=== PATIENT | male | born 1955 | race African-American/Black ===

== ENCOUNTER 2017-03-16 14:57 | Inpatient (IN) ==
[2017-03-16] MEDS: SODIUM CHLORIDE 0.9% 1,000 ML IV SCH (19:06)
[2017-03-16] MEDS: DILTIAZEM INJ 100 MG in SODIUM CHLORIDE 0.9% 100 ML IV SCH (19:07)
[2017-03-16] MEDS ORDERED: ESMOLOL 100 MG/10 ML VIAL IV ONE (19:57)
[2017-03-16] MEDS: CHLORHEXIDINE 0.12% ORAL RINSE 60 ML BOTTLE SWISH/SPIT SCH (21:08)
[2017-03-16] MEDS ORDERED: METOPROLOL TARTRATE 5 MG/5 ML VIAL IV ONE (21:57)
[2017-03-16] MEDS ORDERED: FUROSEMIDE 100 MG/10 ML VIAL IV ONE (23:20)
[2017-03-17] MEDS: DILTIAZEM INJ 100 MG in SODIUM CHLORIDE 0.9% 100 ML IV SCH ×2 (01:58→19:08)
[2017-03-17] MEDS: METOPROLOL TARTRATE 5 MG/5 ML VIAL IV SCH ×5 (04:33→23:31)
[2017-03-17] MEDS ORDERED: FUROSEMIDE 40 MG/4 ML VIAL IV ONE ×2 (07:16→17:00)
[2017-03-17 07:35] LABS: Calcium 8.5 MG/DL (8.5-10.1); Magnesium 2.2 MG/DL (1.8-2.4); Potassium 4.6 MMOL/L (3.5-5.1)
[2017-03-17 07:41] LABS: Basophils % 0.1 % (0.0-0.8); Eosinophils % 0.4 % (0.00-10.9); Hematocrit 37.6 VOL% (42.0-52.0); Immature Granulocytes % 0.5 %; Immature Granulocytes Absolute 0.05 #; Lymphocytes # 1.5 10*3/uL (1.4-4.0); Lymphocytes % 15.5 % (21.2-54.2); Mean Corpuscular HGB Conc 31.9 GM/DL (32-36); Mean Corpuscular Hemoglobin 30 PG (27-34); Mean Corpuscular Volume 94.5 FL (87-102); Mean Platelet Volume 11.5 FL (9.6-12.0); Monocytes # 1.2 10*3/uL (0.11-0.8); Monocytes % 12.7 % (1.7-12.7); Neutrophils # 6.9 10*3/uL (1.4-7.4); Neutrophils % 70.8 % (38.7-73.9); Platelet Count 181 T/CUMM (130-400); Red Blood Count 3.98 MC/CUMM (3.8-5.5); Red Cell Distribution Width 12.2 % (9.3-17.3); White Blood Count 9.7 T/CUMM (4-12)
--- NOTE | 2017-03-17 08:01 | XRay Report ---
XR chest 2V Indication: SOB Comparison: None Technique: Frontal and lateral views of the chest. Findings: Moderate cardiomegaly. There is a nonspecific reticular pattern throughout the bilateral lungs suspicious for interstitial pulmonary edema, interstitial pneumonia, or other interstitial lung disease. Interstitial pulmonary edema/CHF favored. Small bilateral pleural effusions. The lungs are somewhat hyperinflated which can be seen with COPD. Multilevel bridging osteophytes of the thoracic spine suggestive of diffuse neoplastic skeletal hyperostosis. IMPRESSION: As above. PROCEDURE INTERPRETED AT [facility] DEPARTMENT OF RADIOLOGY Final Report Signed by: Dr Rajesh Frey
[2017-03-17] MEDS: CHLORHEXIDINE 0.12% ORAL RINSE 60 ML BOTTLE SWISH/SPIT SCH ×2 (09:38→21:45)
[2017-03-17] MEDS: CHLORHEXIDINE 4% SOLN 118 ML BOTTLE TOP SCH ×2 (09:38→21:46)
--- NOTE | 2017-03-17 11:07 | Cardiothoracic History & Phys ---
Assessment and Plan - Time spent with patient Time spent with patient: Greater than 30 minutes (1) Aortic valve stenosis Status: Acute Current Visit: Yes (2) Aortic valve stenosis Status: Acute Assessment and plan: Risk Model and Variables - STS Adult Cardiac Surgery Database Version 2.81 RISK SCORES About the STS Risk Calculator Procedure: AV Replacement Risk of Mortality: 5.645% Morbidity or Mortality: 45.8% Long Length of Stay: 28.343% Short Length of Stay: 8.238% Permanent Stroke: 1.093% Prolonged Ventilation: 36.054% DSW Infection: 1.914% Renal Failure: 14.124% Reoperation: 15.661% 61-year-old male with severe aortic stenosis and symptoms of congestive heart failure at least partially related to his aortic stenosis. He was noted also to have cardiomyopathy with EF around 25-30% as well as pulmonary hypertension. I had a lengthy discussion with the patient and the family and explained to them that he will need an aortic valve replacement. I explained risks benefits and alternatives and I explained that he is an intermediate risk for surgery. The patient and the family elected to proceed with open surgical replacement of the aortic valve with a mechanical prosthesis. I have been inducing diuresis to tune him up for surgery he was given 2560 mg IV of Lasix. Upon transfer he was already still in sinus tachycardia that was controlled with a beta-elidia. We will proceed with surgery on March 18, 2017. Current Visit: Yes History of Present Illness Chief complaint: congestive heart failure History of present illness: Mr. Guerrero is a 61 year old male who has been having increasing shortness of breath recently mainly upon activity. He denies any chest pain. He had an echo recently which showed severe aortic stenosis. He had a cath at [facility] yesterday showing coronaries to be free of significant disease and confirmed the presence of severe aortic stenosis. I transferred the patient here to [place] from [facility] in preparation for aortic valve replacement surgery. Home Medications Medication Instructions Recorded Confirmed Type Fluticasone/Salmeterol 250-50 1 puff INH BID 03/16/17 03/16/17 History [Advair 250-50] RX: Carvedilol 3.125 mg PO BID 03/16/17 03/16/17 History RX: Fluticasone 50 Mcg Nasal [place] 1 spray ONE NARE BID 03/16/17 03/16/17 History [Flonase Nasal [place]] RX: Furosemide 20 mg PO DAILY 03/16/17 03/16/17 History RX: Lisinopril 10 mg PO DAILY 03/16/17 03/16/17 History Allergies Allergy/AdvReac Type Severity Reaction Status Date / Time No Known Allergies Allergy Verified 03/16/17 18:27 12 point system: reviewed and no additional remarkable complaints except as stated (hpi) Medical,Surgical,& Family Hx - Medical History Cardio: History of: Cardiac Dysrhythmia, Hypertension, Cardiovascular Problems Respiratory: History of: Asthma, Bronchitis, COPD - Social History Smoking Status: Never smoker Frequency of Alcohol Use: None Type of Drug Use: None Cardiology Physical Exam - Constitutional Vitals: Vital Signs Temp Pulse Resp BP Pulse Ox 97.4 F L 98 H 18 128/84 97 03/17/17 08:00 03/17/17 08:00 03/17/17 08:00 03/17/17 08:00 03/17/17 08:00 Intake and Output 03/16/17 03/17/17 03/17/17 22:59 06:59 14:59 Intake Total 360 / 360 342.5 / 342.5 17.5 / 17.5 Output Total 800 / 800 Balance 360 / 360 -457.5 / -457.5 17.5 / 17.5 Intake: IV 0 / 0 102.5 / 102.5 17.5 / 17.5 Cardizem Inj 100 mg In Ns 0 / 0 102.5 / 102.5 17.5 / 17.5 100 ml @ 5 MG/HR 5 mls/ hr IV TITRATE PERLA Rx#: [id number] Oral 360 / 360 240 / 240 Output: Urine 800 / 800 Other: Voiding Method Urinal Urinal # Voids 2 Weight 154.221 kg General appearance: mild distress, morbidly obese - Head Head exam: Present: normal inspection - Eye Eye exam: Present: EOMI Pupils: Present: NAVYA - ENT ENT exam: Present: normal exam - Neck Neck exam: Present: normal inspection - Respiratory Respiratory exam: Present: decreased breath sounds, wheezes - Cardiovascular Cardiovascular exam: Present: regular rate and rhythm Result/EKG - Labs CBC & BMP: 03/17/17 07:38 03/17/17 03:45 Labs: Laboratory Results - last 24 hr 03/16/17 03/17/1703/17/17 18:48 03:45 03:45 WBC RBC Hgb Hct MCV MCH MCHC RDW Plt Count MPV Neut % (Auto) Lymph % (Auto) [place] % (Auto) Eos % (Auto) Baso % (Auto) Neut # (Auto) Lymph # (Auto) [place] # (Auto) Eos # (Auto) Baso # (Auto) Immature Gran % Nucleated RBC % Immature Gran # Nucleated RBCs # Immature Plt Fraction Sodium 136 Potassium 4.6 Chloride 95 L Carbon Dioxide 35 H Anion Gap 10.6 BUN 15 Creatinine 1.20 GFR Calculation 116 BUN/Creatinine Ratio 12.00 Glucose 117 H Calculated Osmolality 273.0 Calcium 8.5 Magnesium 2.2 Blood Type O POSITIVE O POSITIVE Antibody Screen Negative Negative Crossmatch See Detail 03/17/17 07:38 WBC 9.7 RBC 3.98 Hgb 12.0 L Hct 37.6 L MCV 94.5 MCH 30 MCHC 31.9 L RDW 12.2 Plt Count 181 MPV 11.5 Neut % (Auto) 70.8 Lymph % (Auto) 15.5 L [place] % (Auto) 12.7 Eos % (Auto) 0.4 Baso % (Auto) 0.1 Neut # (Auto) 6.9 Lymph # (Auto) 1.5 [place] # (Auto) 1.2 H Eos # (Auto) 0.0 Baso # (Auto) 0.0 Immature Gran % 0.5 Nucleated RBC % 0.0 Immature Gran # 0.05 Nucleated RBCs # 0.00 Immature Plt Fraction 0.0 Sodium Potassium Chloride Carbon Dioxide Anion Gap BUN Creatinine GFR Calculation BUN/Creatinine Ratio Glucose Calculated Osmolality Calcium Magnesium Blood Type Antibody Screen Crossmatch Quality Measures - VTE Contraindication to Pharmacological VTE Prophylaxis: Active Bleeding
[2017-03-17] MEDS: FLUTICASONE/SALMETEROL 250-50 DISKUS 14 DOSE INH SCH ×2 (13:37→21:45)
--- NOTE | 2017-03-17 14:35 | Cardiology Consult Note ---
<Padma Hardy - Last Filed: 03/17/17 15:13> Assessment and Plan - Time spent with patient Time spent with patient: Greater than 30 minutes (1) Aortic valve stenosis Status: Acute Assessment and plan: See plan of care listed below. Current Visit: Yes (2) Congestive heart failure Status: Chronic Assessment and plan: See plan of care listed below. Current Visit: Yes Qualifiers: Congestive heart failure chronicity: unspecified congestive heart failure chronicity (3) Nonischemic cardiomyopathy Status: Acute Assessment and plan: See plan of care listed below. Current Visit: Yes (4) Pulmonary hypertension Status: Acute Assessment and plan: See plan of care listed below. Current Visit: Yes (5) History of asthma Status: Chronic Assessment and plan: See plan of care listed below Current Visit: Yes History of Present Illness - Data of Consult Patient: new to practice Consult date: 03/17/17 Requesting Physician: Shabana Vazquez - Consult Narrative Reason for consult: chf, severe History of present illness: Medical Resident: Dr. Clark at [place] Mr. Guerrero is a 61 year old male without known history of coronary artery disease, routinely followed by [place] cardiology. Patient has cardiac risk factors significant for hypertension, sedentary lifestyle, family history of heart disease (mother) and obesity. Past medical history of asthma patient reports that he does chew tobacco daily. Denies smoking. Patient was transferred to [facility] from [facility] yesterday, March 16, 2017. He underwent heart catheterization 03/16/17 at [facility] that revealed severe aortic stenosis. Coronaries were free of significant obstructive disease. He was transferred to our facility for aortic valve replacement surgery Per Dr. Vazquez. Cardiology has been consulted to follow as patient does have symptoms of congestive heart failure most likely secondary to his aortic stenosis and systolic dysfunction. Has a nonischemic cardiomyopathy with EF around 25-30%. Patient has been diuresed per attending in preparation for surgery tomorrow. Patient was seen and examined with Dr. Damon. He denies experiencing any chest pain, heaviness and tightness. He reports chronic dyspnea on exertion that has significantly worsened over the last 1 year. He also confirms chronic lower extremity edema. He denies syncope but confirms intermittent dizziness. He reports orthopnea and tells us that he has to sleep on multiple pillows nightly. He does report melena about 3 -4 years ago which resolved on its own. Never had colonoscopy. He will need to have this done as an outpatient. He denies fever, chills, cough, nausea, vomiting, abdominal pain and heart racing/palpitations. Echocardiogram has been ordered in order to evaluate patient's aortic stenosis as well as LV function. JUSTIN will be performed intraoperatively tomorrow. Risks and benefits of this procedure has been reviewed with the patient. He verbalizes understanding and wishes to proceed. He will be kept n.p.o. after midnight. ASSESSMENT/PLAN 1. SEVERE AORTIC STENOSIS - Patient is scheduled for AVR tomorrow per Dr. Fernando Minor. Will obtain echocardiogram today. JUSTIN will be performed intraoperatively tomorrow. Risk and benefits of procedure have been reviewed with patient. He is agreeable to proceed. N.p.o. after midnight. 2. CONGESTIVE HEART FAILURE - Chronicity of this is unknown. Secondary to patient's severe aortic stenosis as well as systolic dysfunction. Most recent ejection fraction 25-30%. Patient has been diuresed per attending in preparation for surgery tomorrow. Lung exam is clear. BNP is pending. Continue daily weights and strict I's and O's. 3. NONISCHEMIC CARDIOMYOPATHY - Most recent ejection fraction noted to be 25- 30%. Echocardiogram has been ordered. She underwent heart catheterization at [facility] earlier this week which did not reveal any obstructive coronary artery disease. Will treat this medically. Will add DANAE inhibitor and beta blockade when blood pressure will allow post surgery. Patient will need repeat echocardiogram in 90 days in order to reassess his systolic function. He may be a candidate for ICD at that point. 4. PULMONARY HYPERTENSION - Continue current plan of care. 5. HISTORY OF ASTHMA - Clinically stable at present. Continue current plan of care. CC: Shabana Vazquez - Home Medications and Allergies Home Medications: Home Medications Medication Instructions Recorded Confirmed Type Carvedilol 3.125 mg PO BID 03/16/17 03/16/17 History Fluticasone 50 Mcg Nasal [place] 1 spray ONE NARE BID 03/16/17 03/16/17 History [Flonase Nasal [place]] Fluticasone/Salmeterol 250-50 1 puff INH BID 03/16/17 03/16/17 History [Advair 250-50] Furosemide 20 mg PO DAILY 03/16/17 03/16/17 History Lisinopril 10 mg PO DAILY 03/16/17 03/16/17 History Allergies/Adverse Reactions: Allergies Allergy/AdvReac Type Severity Reaction Status Date / Time No Known Allergies Allergy Verified 03/16/17 18:27 - Constitutional Constitutional: Present: as per HPI, fatigue, weight gain. Absent: chills, fever(s), frequent falls, weight loss - Cardiovascular Cardiovascular: Present: as per HPI, diaphoresis, dyspnea, dyspnea on exertion, edema, orthopnea, PND. Absent: chest pain at rest, chest pain with activity, claudication, radiating jaw, neck or arm pain, lightheadedness, palpitations - Respiratory Respiratory: Present: as per HPI, dyspnea, dyspnea on exertion. Absent: cough, hemoptysis, wheezing, snoring, pain on inspiration, change in phlegm color - Gastrointestinal Gastrointestinal: Present: as per HPI, melena (3 years ago). Absent: abdominal pain, nausea, vomiting - Neurological Neurological: Present: as per HPI. Absent: abnormal gait, abnormal speech, behavioral changes, dizziness, syncope Medical,Surgical,& Family Hx - Medical History Cardio: History of: Cardiac Dysrhythmia, CHF, Hypertension, Valvular Heart Disease (Aortic stenosis), Cardiovascular Problems Respiratory: History of: Asthma, Bronchitis - Surgical History Cardiac Surgeries: Sugical HX of: Cardiac Catheterization Abdominal Surgeries: Patient denies: Colonoscopy - Family History Family History: Reports;: Family Heart Disease - Social History Smoking Status: Never smoker Frequency of Alcohol Use: None Type of Drug Use: None Marital Status: Lives With:: Spouse Functional capacity: independent ambulation Physical Examination Vital Signs Temp Pulse Resp BP Pulse Ox 97.8 F 119 H 20 120/68 96 03/16/17 18:29 03/16/17 18:29 03/16/17 18:29 03/16/17 18:29 03/16/17 18:29 Exam: General: Appears well with no apparent distress. Pleasant and cooperative. Appears comfortable. Obese. HEENT: PERRL, normocephalic, atraumatic. Mucous membranes moist. No jaundice noted. Conjunctiva moist and clear, sclerae anicteric Neck: No JVD/HJR, no thyromegaly or lymphadenopathy noted. No carotid bruit appreciated Cardiac: Regular rate and rhythm. Heart tones are distant. Grade 2 out of 6 murmur Lungs: Clear to auscultation without accessory muscle use to assist the respiratory pattern. Abdomen: Soft, bowel sounds normoactive. Nontender and nondistended. No abdominal bruit or thrill noted. No masses noted. Extremities: No clubbing, cyanosis noted. 3+ bilateral lower extremity edema. Upper extremity pulses 2+. Lower extremity pulses 2+. Capillary refill less than 3 seconds. Skin: No unusual lesions or rashes. No skin breakdown appreciated. Neuro: Awake, alert and oriented 3. Moves all extremities well without hemiparesis or paralysis. No essential tremor is appreciated. Result/EKG - Labs CBC & BMP: 03/17/17 07:38 03/17/17 03:45 Lab Results: I have reviewed the past 24 hour labs Labs: Laboratory Results - last 24 hr 03/16/17 03/17/17 03/17/17 18:48 03:45 03:45 WBC RBC Hgb Hct MCV MCH MCHC RDW Plt Count MPV Neut % (Auto) Lymph % (Auto) [place] % (Auto) Eos % (Auto) Baso % (Auto) Neut # (Auto) Lymph # (Auto) [place] # (Auto) Eos # (Auto) Baso # (Auto) Immature Gran % Nucleated RBC % Immature Gran # Nucleated RBCs # Immature Plt Fraction Sodium 136 Potassium 4.6 Chloride 95 L Carbon Dioxide 35 H Anion Gap 10.6 BUN 15 Creatinine 1.20 GFR Calculation 116 BUN/Creatinine Ratio 12.00 Glucose 117 H Calculated Osmolality 273.0 Calcium 8.5 Magnesium 2.2 Blood Type O POSITIVE O POSITIVE Antibody Screen Negative Negative Crossmatch See Detail 03/17/17 07:38 WBC 9.7 RBC 3.98 Hgb 12.0 L Hct 37.6 L MCV 94.5 MCH 30 MCHC 31.9 L RDW 12.2 Plt Count 181 MPV 11.5 Neut % (Auto) 70.8 Lymph % (Auto) 15.5 L [place] % (Auto) 12.7 Eos % (Auto) 0.4 Baso % (Auto) 0.1 Neut # (Auto) 6.9 Lymph # (Auto) 1.5 [place] # (Auto) 1.2 H Eos # (Auto) 0.0 Baso # (Auto) 0.0 Immature Gran % 0.5 Nucleated RBC % 0.0 Immature Gran # 0.05 Nucleated RBCs # 0.00 Immature Plt Fraction 0.0 Sodium Potassium Chloride Carbon Dioxide Anion Gap BUN Creatinine GFR Calculation BUN/Creatinine Ratio Glucose Calculated Osmolality Calcium Magnesium Blood Type Antibody Screen Crossmatch Quality Measures - VTE Contraindication to Pharmacological VTE Prophylaxis: Active Bleeding <NelsonStephanie - Last Filed: 03/17/17 17:10> History of Present Illness - Consult Narrative History of present illness: I have personally interviewed and examined the patient, reviewed the chart and discussed medical decision-making with practitioner Antony. I have read this note and agree with the documentation herein. CC: Shabana Vazquez Physical Examination Vital Signs Temp Pulse Resp BP Pulse Ox 97.8 F 119 H 20 120/68 96 03/16/17 18:29 03/16/17 18:29 03/16/17 18:29 03/16/17 18:29 03/16/17 18:29 Result/EKG - Labs CBC & BMP: 03/17/17 07:38 03/17/17 03:45 Labs: Laboratory Results - last 24 hr 03/16/17 03/17/17 03/17/17 18:48 03:45 03:45 WBC RBC Hgb Hct MCV MCH MCHC RDW Plt Count MPV Neut % (Auto) Lymph % (Auto) [place] % (Auto) Eos % (Auto) Baso % (Auto) Neut # (Auto) Lymph # (Auto) [place] # (Auto) Eos # (Auto) Baso # (Auto) Immature Gran % Nucleated RBC % Immature Gran # Nucleated RBCs # Immature Plt Fraction Sodium 136 Potassium 4.6 Chloride 95 L Carbon Dioxide 35 H Anion Gap 10.6 BUN 15 Creatinine 1.20 GFR Calculation 116 BUN/Creatinine Ratio 12.00 Glucose 117 H Calculated Osmolality 273.0 Calcium 8.5 Magnesium 2.2 B-Natriuretic Peptide Blood Type O POSITIVE O POSITIVE Antibody Screen Negative Negative Crossmatch See Detail 03/17/17 03/17/17 07:38 Unknown WBC 9.7 RBC 3.98 Hgb 12.0 L Hct 37.6 L MCV 94.5 MCH 30 MCHC 31.9 L RDW 12.2 Plt Count 181 MPV 11.5 Neut % (Auto) 70.8 Lymph % (Auto) 15.5 L [place] % (Auto) 12.7 Eos % (Auto) 0.4 Baso % (Auto) 0.1 Neut # (Auto) 6.9 Lymph # (Auto) 1.5 [place] # (Auto) 1.2 H Eos # (Auto) 0.0 Baso # (Auto) 0.0 Immature Gran % 0.5 Nucleated RBC % 0.0 Immature Gran # 0.05 Nucleated RBCs # 0.00 Immature Plt Fraction 0.0 Sodium Potassium Chloride Carbon Dioxide Anion Gap BUN Creatinine GFR Calculation BUN/Creatinine Ratio Glucose Calculated Osmolality Calcium Magnesium B-Natriuretic Peptide 406 H Blood Type Antibody Screen Crossmatch
[2017-03-17] MEDS: SODIUM BICARB INJ 50 MEQ in SODIUM CHLORIDE 0.45% 1,000 ML IV SCH (16:00)
--- NOTE | 2017-03-17 18:04 | ECHO Report ---
Kenan Guerrero Exam Date: 03/17/2017 15:17 Referring Physician: Technologist: Sienna Nino Age: 61 Ht (in): 72 Wt (lb): 340 Gender: M Exam Location: [facility] Echo Indications: Hx. Asthma, Pulmonary HTN, AV stenosis, CHF, cardiomyopathy BP: 119 / 76 HR: 97 Rhythm: Sinus Technical Quality: Technically difficult study IMPRESSIONS Severely reduced LV systolic function with global hypokinesis, ejection fraction estimated at 20-25%. Grade 1/4 diastolic dysfunction. Mild to moderate concentric left ventricular hypertrophy. Mild biatrial enlargement. Trace mitral and tricuspid regurgitation. Severe aortic stenosis, favor severe. MEASUREMENTS (Male / Female) Normal Values 2D ECHO LV Diastolic Diameter PLAX 5.1 cm 4.2 - 5.9 / 3.9 - 5.3 cm LV Systolic Diameter PLAX 4.4 cm LV Fractional Shortening PLAX 13.4 % IVS Diastolic Thickness 1.5 cm 0.6 - 1.0 / 0.6 - 0.9 cm LVPW Diastolic Thickness 1.4 cm 0.6 - 1.0 / 0.6 - 0.9 cm Aortic Root Diameter 3.8 cm LA Systolic Diameter LX 4.4 cm 3.0 - 4.0 / 2.7 - 3.8 cm DOPPLER TR Peak Velocity 266.0 cm/s TR Peak Gradient 28.3 mmHg FINDINGS Left Ventricle Mildly increased left ventricular cavity size. Mild - moderate concentric left ventricular hypertrophy with diastolic dysfunction. Left ventricular ejection fraction is estimated at 20-25%. Right Ventricle Normal right ventricular size. Right Atrium Mildly enlarged. Left Atrium The left atrium is mildly enlarged. Mitral Valve Morphologically normal mitral valve. Trace mitral valve regurgitation. Aortic Valve Severe calcification with decreased leaflet excursion, Severe aortic valve stenosis. Peak gradient 58 mmHg, mean 34 mmHg. LVOT VTI 16.8 cm, AV VTI 75.7 cm, with a ratio of 0.22 which is consistent with severe aortic stenosis. By continuity equation aortic valve area is 1.1 cm, however in the setting of low systolic function is can overestimate the valve area. Aortic valve mean gradient is 34 mmHg. Mild regurgitation. Tricuspid Valve Morphologically normal tricuspid valve. Trace tricuspid valve regurgitation. Tricuspid regurgitation velocities suggest a PAP of 28.3 mmHg + RAP. Pulmonic Valve Pulmonic valve not well visualized. Pericardium No pericardial effusion. Aorta Normal size aortic root and proximal ascending aorta. Stephanie Damon MD (Electronically Signed) Final Date: 17 March 2017 18:03
[2017-03-17] MEDS: SODIUM CHLORIDE 0.9% 1,000 ML IV SCH (18:26)
--- NOTE | 2017-03-17 20:43 | EKG Report ---
Stationary ECG Study [facility] Test Date: 03/17/2017 8:40:27 PM Pat Name: TEODORA RODRIGUEZ Department: Room: 289 Gender: M Prevention Rn: : 1955 Requested by: Toñito Rahman Order Number: [id number] Reading MD: ADRIAN BONILLA Intervals [place] Rate: 110 P: 62 [place]: 185 QRS: -51 QRSD: 110 T: 88 QT: 347 QTc: 412 Interpretive Statements SINUS TACHYCARDIA LEFT ANTERIOR FASCICULAR BLOCK MODERATE VOLTAGE CRITERIA FOR LVH, MAY BE NORMAL VARIANT NONSPECIFIC T WAVE ABNORMALITY Electronically Signed On 03-21-17 18:28:17 CDT by ADRIAN BONILLA [email or web address]
[2017-03-17] MEDS: ALBUTEROL/IPRATROPIUM 3 ML NEB RESP TX SCH (21:20)
[2017-03-18] MEDS: ALBUTEROL/IPRATROPIUM 3 ML NEB RESP TX SCH ×6 (00:27→23:50)
[2017-03-18] MEDS: SODIUM BICARB INJ 50 MEQ in SODIUM CHLORIDE 0.45% 1,000 ML IV SCH (02:21)
[2017-03-18] MEDS ORDERED: VANCOMYCIN 1,000 MG VIAL ONE (04:44)
[2017-03-18] MEDS ORDERED: TISSUE ADHESIVE 1 EACH APPLICATOR TOP ONE (04:44)
[2017-03-18] MEDS: CHLORHEXIDINE 4% SOLN 118 ML BOTTLE TOP SCH (04:47)
[2017-03-18 05:24] LABS: Basophils % 0.1 % (0.0-0.8); Eosinophils # 0.1 10*3/uL (0.0-0.87); Eosinophils % 0.9 % (0.00-10.9); Hematocrit 35.4 VOL% (42.0-52.0); Hemoglobin 11.2 GM/DL (14.0-18.0); Immature Granulocytes % 0.5 %; Immature Granulocytes Absolute 0.04 #; Lymphocytes # 1.4 10*3/uL (1.4-4.0); Lymphocytes % 17.8 % (21.2-54.2); Mean Corpuscular HGB Conc 31.6 GM/DL (32-36); Mean Corpuscular Hemoglobin 30 PG (27-34); Mean Corpuscular Volume 94.7 FL (87-102); Mean Platelet Volume 12.1 FL (9.6-12.0); Monocytes % 12.6 % (1.7-12.7); Neutrophils # 5.5 10*3/uL (1.4-7.4); Neutrophils % 68.1 % (38.7-73.9); Platelet Count 177 T/CUMM (130-400); Red Blood Count 3.74 MC/CUMM (3.8-5.5); Red Cell Distribution Width 12.1 % (9.3-17.3); White Blood Count 8.1 T/CUMM (4-12)
[2017-03-18] MEDS ORDERED: CEFUROXIME INJ 1,500 MG in SODIUM CHLORIDE 0.9% 100 ML IV ONE (05:30)
[2017-03-18] MEDS: METOPROLOL TARTRATE 5 MG/5 ML VIAL IV SCH ×2 (05:35→12:00)
[2017-03-18 05:44] LABS: Calcium 8.8 MG/DL (8.5-10.1); Magnesium 2.3 MG/DL (1.8-2.4); Potassium 4.4 MMOL/L (3.5-5.1)
[2017-03-18] MEDS ORDERED: MINERAL OIL/PETROLATUM OPH OINT 3.5 GM TUBE ONE (07:45)
[2017-03-18] MEDS ORDERED: CALCIUM CHLORIDE 1,000 MG/10 ML SYRINGE IV ONE (07:45)
[2017-03-18] MEDS ORDERED: PHENYLEPHRINE 1 MG/10 ML SYRINGE IV ONE (07:45)
[2017-03-18] MEDS ORDERED: ETOMIDATE 20 MG/10 ML VIAL IV ONE (07:45)
[2017-03-18] MEDS ORDERED: ESMOLOL 100 MG/10 ML VIAL IV ONE (07:45)
[2017-03-18] MEDS ORDERED: LIDOCAINE 2% 5 ML VIAL ONE (07:45)
[2017-03-18] MEDS ORDERED: AMINOCAPROIC ACID 5,000 MG/20 ML VIAL IV ONE (07:45)
[2017-03-18] MEDS ORDERED: ROCURONIUM 100 MG/10 ML VIAL IV ONE (07:45)
[2017-03-18 08:39] LABS: ABG Base Excess 9.3 MMOL/L (-2.5-2.5); ABG HCO3 33.2 MMOL/L (20-26); ABG PCO2 43.6 MM HG (35-48); ABG PH 7.499 (7.35-7.45); ABG TCO2 27.8 MMOL/L (23-27); Hematocrit Heart Surgery 51.3 PERCENT (42-52); Hemoglobin Heart Surgery 16.8 G/DL (14.0-18.0); Ionized Calcium Arterial 1.11 MMOL/L (1.21-1.46); PCO2 Patient Temp Arterial 43.6 MMHG; PH Patient Temp Arterial 7.499; Patient Temperature 37 CELCIUS; Potassium Heart/CVR 3.9 MMOL/L (3.5-5.1); Sodium Heart/CVR 135 MMOL/L (135-145)
[2017-03-18 08:40] LABS: Glucose Heart Surgery 128 MG/DL (74-106)
[2017-03-18 09:00] LABS: Apearance,Urine CLEAR (Clear); Bilirubin,Urine Negative (Negative); Blood, Urine Negative (Negative); Glucose,Urine (UA) Negative (Negative); Hyaline Casts,Urine 1 /LPF (0-3); Ketones,Urine Negative (Negative); Mucus,Urine Moderate /LPF (Occasional); Nitrite,Urine Negative (Negative); Protein,Urine 30 MG/DL; RBC,Urine 2 /HPF (0-4); Squamous Epithelial Cell,Urine Occasional /HPF (0-10); Urine Color Yellow (Yellow); WBC,Urine 4 /HPF (0-6)
[2017-03-18] MEDS: CHLORHEXIDINE 0.12% ORAL RINSE 60 ML BOTTLE SWISH/SPIT SCH ×2 (09:00→21:49)
[2017-03-18] MEDS: FLUTICASONE/SALMETEROL 250-50 DISKUS 14 DOSE INH SCH (09:00)
[2017-03-18 10:00] LABS: Hematocrit Heart Surgery 25.1 PERCENT (42-52); PCO2 Patient Temp Venous 40.5 MM HG; PH Patient Temp Venous 7.502; PO2 Patient Temp Venous 31.2 MM HG; Potassium Heart/CVR 3.6 MMOL/L (3.5-5.1); VBG Base Excess 8.1 MEQ/L (0-4); VBG HCO3 31.5 MEQ/L (24-28); VBG Oxygen Saturation 73.9 %; VBG PCO2 44.6 MMHG (41-51); VBG PH 7.472; VBG PO2 35.9 MMHG (17-40)
[2017-03-18 10:31] LABS: Hematocrit Heart Surgery 23.5 PERCENT (42-52); Hemoglobin Heart Surgery 7.5 G/DL (14.0-18.0); PCO2 Patient Temp Venous 38.8 MM HG; PH Patient Temp Venous 7.517; PO2 Patient Temp Venous 29.3 MM HG; Potassium Heart/CVR 3.7 MMOL/L (3.5-5.1); VBG Base Excess 8.3 MEQ/L (0-4); VBG HCO3 31.7 MEQ/L (24-28); VBG Oxygen Saturation 74.5 %; VBG PCO2 44.9 MMHG (41-51); VBG PH 7.472; VBG PO2 36.2 MMHG (17-40)
[2017-03-18 10:58] LABS: Hematocrit Heart Surgery 26.8 PERCENT (42-52); Hemoglobin Heart Surgery 8.6 G/DL (14.0-18.0); PCO2 Patient Temp Venous 36.7 MM HG; PH Patient Temp Venous 7.522; PO2 Patient Temp Venous 30.5 MM HG; Potassium Heart/CVR 3.8 MMOL/L (3.5-5.1); VBG Base Excess 7.1 MEQ/L (0-4); VBG HCO3 30.6 MEQ/L (24-28); VBG Oxygen Saturation 77.2 %; VBG PCO2 42.4 MMHG (41-51); VBG PH 7.477; VBG PO2 37.6 MMHG (17-40)
[2017-03-18] MEDS ORDERED: ALBUMIN 25% 25 GM/100 ML VIAL IV ONE (11:25)
[2017-03-18] MEDS ORDERED: SODIUM BICARBONATE 50 MEQ/50 ML SYRINGE IV ONE (11:25)
[2017-03-18] MEDS ORDERED: methylPREDNISolone SOD SUC 1,000 MG/8 ML VIAL ONE (11:25)
[2017-03-18] MEDS ORDERED: MANNITOL 12.5 GM/50 ML VIAL IV ONE (11:25)
[2017-03-18] MEDS ORDERED: HEPARIN 10,000 UNIT/10 ML VIAL ONE (11:25)
[2017-03-18] MEDS ORDERED: DEXTROSE 5% KCL 20 MEQ 20 MEQ/1,000 ML BAG IV ONE (11:25)
[2017-03-18] MEDS ORDERED: MAGNESIUM SULFATE 1 GM/2 ML VIAL ONE (11:25)
[2017-03-18] MEDS ORDERED: FUROSEMIDE 20 MG/2 ML VIAL ONE (11:26)
[2017-03-18] MEDS ORDERED: PROTAMINE SULFATE 250 MG/25 ML VIAL IV ONE (11:26)
[2017-03-18 11:33] LABS: ABG Base Excess 4.5 MMOL/L (-2.5-2.5); ABG HCO3 27.2 MMOL/L (20-26); ABG Oxygen Saturation 99.1 % (95-100); ABG PCO2 33.6 MM HG (35-48); ABG PH 7.526 (7.35-7.45); ABG PO2 195.8 MM HG (80-95); ABG TCO2 28.2 MMOL/L (23-27); Glucose Heart Surgery 232 MG/DL (74-106); Hemoglobin Heart Surgery 10.2 G/DL (14.0-18.0); Ionized Calcium Arterial 1.19 MMOL/L (1.21-1.46); PCO2 Patient Temp Arterial 33.6 MMHG; PH Patient Temp Arterial 7.526; PO2 Patient Temp Arterial 195.8 MM HG; Patient Temperature 37 CELCIUS; Sodium Heart/CVR 133 MMOL/L (135-145)
[2017-03-18] MEDS ORDERED: PHENYLEPHRINE DRIP 40 MG/250 ML PREMIX IV ONE (12:03)
[2017-03-18] MEDS: SODIUM CHLORIDE 0.45% 1,000 ML IV SCH ×2 (12:45→13:30)
[2017-03-18] MEDS ORDERED: MAGNESIUM SULF RIDER 4 GM in PREMIX 1 EACH IV PRN (12:48)
[2017-03-18] MEDS ORDERED: SODIUM CHLORIDE 0.9% 250 ML IV PRN (12:48)
[2017-03-18] MEDS ORDERED: CALCIUM CHLORIDE 1,000 MG/10 ML SYRINGE IV PRN (12:48)
[2017-03-18] MEDS ORDERED: DEXTROSE 50% 25 GM/50 ML SYRINGE IV PRN ×2 (12:48)
[2017-03-18] MEDS ORDERED: MORPHINE 2 MG/1 ML SYRINGE IV PRN (12:48)
[2017-03-18] MEDS ORDERED: MAGNESIUM SULF RIDER 2 GM in PREMIX 1 EACH IV PRN (12:48)
[2017-03-18] MEDS ORDERED: CHLORHEXIDINE 4% SOLN 118 ML BOTTLE TOP PRN (12:48)
[2017-03-18] MEDS ORDERED: ONDANSETRON 4 MG/2 ML VIAL IV PRN (12:48)
[2017-03-18] MEDS ORDERED: ACETAMINOPHEN 650 MG SUPP RECTAL PRN (12:48)
[2017-03-18] MEDS ORDERED: MORPHINE 10 MG/1 ML VIAL IV PRN (12:48)
[2017-03-18] MEDS ORDERED: INSULIN REGULAR 100 UNIT/ML IV PRN (12:48)
[2017-03-18 12:53] LABS: ABG HCO3 27.8 MMOL/L (20-26); ABG Oxygen Saturation 99.5 % (95-100); ABG PCO2 30.5 MM HG (35-48); ABG PH 7.578 (7.35-7.45); ABG PO2 327.2 MM HG (80-95); ABG TCO2 28.8 MMOL/L (23-27); Glucose Heart Surgery 213 MG/DL (74-106); Hemoglobin Heart Surgery 10.1 G/DL (14.0-18.0); Potassium Heart/CVR 3.6 MMOL/L (3.5-5.1)
[2017-03-18] MEDS ORDERED: ALBUMIN 5% 12.5 GM/250 ML VIAL IV ONE (12:53)
[2017-03-18 12:57] LABS: Basophils % 0.1 % (0.0-0.8); Eosinophils # 0.1 10*3/uL (0.0-0.87); Eosinophils % 0.4 % (0.00-10.9); Hematocrit 28.4 VOL% (42.0-52.0); Hemoglobin 9.2 GM/DL (14.0-18.0); Immature Granulocytes % 0.8 %; Immature Granulocytes Absolute 0.09 #; Lymphocytes # 0.9 10*3/uL (1.4-4.0); Lymphocytes % 7.7 % (21.2-54.2); Mean Corpuscular HGB Conc 32.4 GM/DL (32-36); Mean Corpuscular Hemoglobin 30 PG (27-34); Mean Corpuscular Volume 92.8 FL (87-102); Mean Platelet Volume 11.7 FL (9.6-12.0); Monocytes # 0.8 10*3/uL (0.11-0.8); Monocytes % 6.7 % (1.7-12.7); Neutrophils # 9.5 10*3/uL (1.4-7.4); Neutrophils % 84.3 % (38.7-73.9); Platelet Count 134 T/CUMM (130-400); Red Blood Count 3.06 MC/CUMM (3.8-5.5); Red Cell Distribution Width 12.1 % (9.3-17.3); White Blood Count 11.3 T/CUMM (4-12)
[2017-03-18] MEDS: ALBUMIN 5% 12.5 GM in PREMIX 1 EACH IV PRN ×6 (13:00→15:50)
[2017-03-18 13:07] LABS: INR 1.3; PT Patient Result 13.4 SECS; Partial Thromboplastin Time 31.1 SECS (0-40)
[2017-03-18 13:23] LABS: Lactic Acid 3.6 MMOL/L (0.4-2.0)
[2017-03-18] MEDS ORDERED: SEVOFLURANE 1 UNIT/15 MINUTE INH ONE (13:32)
[2017-03-18 13:33] LABS: Magnesium 2.1 MG/DL (1.8-2.4); Osmolality,Calculated 282.7 MOS/KG (273-304); Potassium 3.7 MMOL/L (3.5-5.1)
[2017-03-18] MEDS ORDERED: ePHEDrine 50 MG/ML AMP ONE (13:33)
[2017-03-18] MEDS ORDERED: SODIUM CHLORIDE 0.9% 250 ML IV ONE (13:33)
[2017-03-18] MEDS ORDERED: MIDAZOLAM 10 MG/2 ML VIAL ONE ×2 (13:33)
[2017-03-18] MEDS ORDERED: LACTATED RINGERS 1,000 ML IV ONE (13:33)
[2017-03-18] MEDS ORDERED: SODIUM CHLORIDE 0.9% 2,000 ML IV ONE (13:33)
--- NOTE | 2017-03-18 13:34 | XRay Report ---
XR chest 1V portable Indication: Endotracheal tube and line placement. Comparison: Chest x-ray 03/17/2017. Technique: Portable AP chest was performed. Findings: Interval sternotomy is demonstrated. Bowel prosthesis additionally is noted. Multiple tubes and medical support devices have been placed. Endotracheal tube terminates at the sternoclavicular junction. NG tube not well visualized in the lower mediastinum secondary to the degree of ventricles. Blunting the costophrenic angles remains present unchanged. The lungs demonstrate minimal parenchymal opacities in the lung bases likely reflective of atelectasis. The heart size is stable. Impression: 1. Interval sternotomy and suggested valve replacement. 03/18/2017 1:30 PM PROCEDURE INTERPRETED AT [facility] DEPARTMENT OF RADIOLOGY Final Report Signed by: Dr. Lew Motley
[2017-03-18] MEDS: POTASSIUM CHLORIDE RIDER 20 MEQ in PREMIX 1 EACH IV PRN ×3 (13:38→21:22)
--- NOTE | 2017-03-18 13:49 | Operative Note ---
Date of procedure: 03/18/17 Pre-op diagnosis: severe aortic stenosis with CHF Post-op diagnosis: same Procedure: 1. Transesophageal echocardiogram 2. Resection of severely sclerotic aortic valve leaflets 3. Institution of cardiopulmonary bypass 4. Implantation of a size 29 mechanical aortic valve Findings: Severely sclerotic and immobile trileaflet aortic valve with fishmouth opening. Severe congestive heart failure with severe cardiomyopathy with a JUSTIN confirming EF to be around 20-25%. Successful implantation of size 29 mechanical aortic valve. Details of the procedure. The patient was brought into the OR placed supine on the OR table and general endotracheal anesthesia was induced without any problems. Antibiotics were given. Timeout was performed. JUSTIN probe with inserted. Confirmed severe aortic stenosis with severely depressed myocardial activity was around 20%. Chest was prepped and draped in the usual sterile fashion. Midline incision was performed. Sternotomy was performed. Pericardial cradle was achieved. Heparin was given. the aorta was cannulated successfully. Dual stage cannula was inserted in the right atrium to the IVC. Cardioplegia needle was inserted. Cardiopulmonary bypass was initiated. I then placed an LV vent through the right superior pulmonary vein. The patient was drifted to 34. Cross-clamp was applied and cardioplegia was given. Heart arrested successfully without any problems. An arthrotomy was then placed around 1 cm above the sinotubular junction. The arthrotomy was then carried transversely towards the PA and then diagonally through the mid noncoronary sinus. The valve leaflets were severely sclerotic thickened and not mobile. I then proceeded with resection of the leaflets and cleaning of the annulus meticulously. Sizing of the valve yielded a size 29. Size 29 mechanical valve was used. The ventricle and annulus were irrigated thoroughly. Horizontal mattress pledgeted stitches were used circumferentially around the annulus. These stitch was then passed through the cuff of the mechanical valve. The mechanical valve was then seated down successfully without any problems. All the sutures were tied down using Kor-not. The arthrotomy was then closed using running 4-0 Prolene stitch on each side with an over and over technique. I then proceeded with the earring the ventricle and the aorta successfully. After de-airing I removed the cross clamp and the heart resumed sinus rhythm without any problems. Hemostasis was achieved successfully and the protamine was started. After protamine was given JUSTIN was performed and the valve was seated well and there was no leak noted on the JUSTIN. I then proceeded with decannulation successfully. Hemostasis achieved. Chest tubes were inserted. Pacing wires were placed. I then proceeded with closing the sternum with wires. There is a within incision was closed running PDS. And then the skin was closed using Monocryl. The patient tolerated the procedure well. All counts were correct at the end of the procedure. Patient was transferred to the ICU in good condition. Anesthesia: JOHN Surgeon / Physician: Shabana Vazquez Estimated blood loss: other (CPB) Tourniquet Time (Minutes): 72 Specimens: other (AORTIC VALVE LEAFLETS) Condition: stable Disposition: ICU Results - Labs CBC & BMP: 03/18/17 12:45 03/18/17 12:45 Discharge Plan - Discharge Medications No Action Fluticasone/Salmeterol 250-50 [Advair 250-50] 1 puff INH BID Lisinopril 10 mg PO DAILY Furosemide 20 mg PO DAILY Fluticasone 50 Mcg Nasal Brandon [Flonase Nasal Brandon] 1 spray ONE NARE BID Carvedilol 3.125 mg PO BID - Follow Up or Referral - Forms/Instructions
[2017-03-18 13:59] LABS: Hematocrit Heart Surgery 25.9 PERCENT (42-52); Hemoglobin Heart Surgery 8.3 G/DL (14.0-18.0); PCO2 Patient Temp Venous 47.1 MM HG; PH Patient Temp Venous 7.421; PO2 Patient Temp Venous 30.4 MM HG; VBG Base Excess 5.4 MEQ/L (0-4); VBG HCO3 28.7 MEQ/L (24-28); VBG Oxygen Saturation 56.6 %; VBG PCO2 47.1 MMHG (41-51); VBG PH 7.421; VBG PO2 30.4 MMHG (17-40)
[2017-03-18] MEDS: INSULIN REGULAR DRIP 100 ML IV SCH (14:40)
--- NOTE | 2017-03-18 14:44 | XRay Report ---
XR chest 1V portable Indication: [place] placement. Comparison: Chest x-ray 03/18/2017 Technique: Portable AP chest was performed. Findings: Interval repositioning [place] catheter has occurred. The tip now lies within the right pulmonary outflow. Chest is otherwise stable. Impression: 1. Interval repositioning of [place]a catheter. 03/18/2017 2:41 PM PROCEDURE INTERPRETED AT [facility] DEPARTMENT OF RADIOLOGY Final Report Signed by: Dr. Lew Motley
[2017-03-18] MEDS: MIDAZOLAM 2 MG/2 ML VIAL IV PRN ×2 (18:35→19:00)
--- NOTE | 2017-03-18 18:35 | ECHO Report ---
Kenan Guerrero Exam Date: 03/18/2017 11:25 Referring Physician: Technologist: Sienna Nino Age: 61 Ht (in): 72 Wt (lb): 340 Gender: M Exam Location: [facility] Echo Pre-op Dx: AVR Post-op Dx: BP: 119 / 68 HR: 85 Rhythm: Sinus Technical Quality: Fair Specimens Taken None. Devices Implanted None. Medications The patient was under general anesthesia intraoperatively for aortic valve replacement. Complications None. Estimated Blood Loss None related to the transesophageal echocardiogram. Proc. Components The transesophageal probe was placed by Dr. Vazquez preoperatively. I manipulated the probe in the retrocardiac position, where images were obtained. IMPRESSIONS This is a focused intraoperative study to evaluate aortic valve replacement. Mechanical valve is noted to be well seated in the aortic position without rocking or dehiscence, no regurgitation noted. No bubbles were detected in the left ventricle. MEASUREMENTS (Male / Female) Normal Values FINDINGS Left Ventricle Right Ventricle Right Atrium Left Atrium LA Appendage IA Septum Mitral Valve Aortic Valve Tricuspid Valve Pulmonic Valve Pericardium Aorta Stephanie Damon MD (Electronically Signed) Final Date: 18 March 2017 18:34
[2017-03-18 20:19] LABS: ABG Base Excess 4.9 MMOL/L (-2.5-2.5); ABG HCO3 28.8 MMOL/L (20-26); ABG Oxygen Saturation 96.8 % (95-100); ABG PH 7.303 (7.35-7.45); ABG PO2 95.1 MM HG (80-95); ABG TCO2 30.6 MMOL/L (23-27); Glucose Heart Surgery 158 MG/DL (74-106); Hematocrit Heart Surgery 26.2 PERCENT (42-52); Hemoglobin Heart Surgery 8.4 G/DL (14.0-18.0); Potassium Heart/CVR 4.2 MMOL/L (3.5-5.1)
[2017-03-18 21:11] LABS: ABG Base Excess 5.5 MMOL/L (-2.5-2.5); ABG HCO3 29.4 MMOL/L (20-26); ABG PCO2 61.5 MM HG (35-48); ABG PH 7.334 (7.35-7.45); ABG TCO2 30.5 MMOL/L (23-27); Glucose Heart Surgery 149 MG/DL (74-106); Hematocrit Heart Surgery 26.7 PERCENT (42-52); Hemoglobin Heart Surgery 8.6 G/DL (14.0-18.0); Potassium Heart/CVR 4.1 MMOL/L (3.5-5.1)
[2017-03-18] MEDS: CEFUROXIME INJ 1,500 MG in SODIUM CHLORIDE 0.9% 100 ML IV SCH (21:22)
[2017-03-18 22:43] LABS: VBG HCO3 29.3 MEQ/L (24-28); VBG PCO2 67.8 MMHG (41-51); VBG PH 7.307; VBG PO2 35.5 MMHG (17-40)
[2017-03-19 00:28] LABS: ABG Base Excess 6.6 MMOL/L (-2.5-2.5); ABG HCO3 30.5 MMOL/L (20-26); ABG Oxygen Saturation 98.5 % (95-100); ABG PCO2 45.2 MM HG (35-48); ABG PO2 97.2 MM HG (80-95); ABG TCO2 29.1 MMOL/L (23-27); Glucose Heart Surgery 104 MG/DL (74-106); Hematocrit Heart Surgery 25.6 PERCENT (42-52); Hemoglobin Heart Surgery 8.2 G/DL (14.0-18.0); Potassium Heart/CVR 4.3 MMOL/L (3.5-5.1)
[2017-03-19 01:07] LABS: ABG Base Excess 6.9 MMOL/L (-2.5-2.5); ABG HCO3 32.9 MMOL/L (20-26); ABG Oxygen Saturation 97.6 % (95-100); ABG PCO2 55.6 MM HG (35-48); ABG PO2 107.6 MM HG (80-95); ABG TCO2 34.6 MMOL/L (23-27); Glucose Heart Surgery 103 MG/DL (74-106); Hemoglobin Heart Surgery 9.3 G/DL (14.0-18.0); Potassium Heart/CVR 4.4 MMOL/L (3.5-5.1)
[2017-03-19] MEDS: SODIUM CHLORIDE 0.45% 1,000 ML IV SCH ×2 (02:10→09:25)
[2017-03-19 02:11] LABS: ABG Base Excess 5.4 MMOL/L (-2.5-2.5); ABG HCO3 29.3 MMOL/L (20-26); ABG Oxygen Saturation 98.6 % (95-100); ABG PCO2 58.9 MM HG (35-48); ABG PH 7.347 (7.35-7.45); Glucose Heart Surgery 138 MG/DL (74-106); Hemoglobin Heart Surgery 8.7 G/DL (14.0-18.0); Potassium Heart/CVR 4.5 MMOL/L (3.5-5.1)
[2017-03-19 02:23] LABS: Hemoglobin 8.6 GM/DL (14.0-18.0); Immature Granulocytes % 0.4 %; Immature Granulocytes Absolute 0.05 #; Lymphocytes # 0.5 10*3/uL (1.4-4.0); Lymphocytes % 4.1 % (21.2-54.2); Mean Corpuscular HGB Conc 31.9 GM/DL (32-36); Mean Corpuscular Hemoglobin 30 PG (27-34); Mean Corpuscular Volume 94.1 FL (87-102); Mean Platelet Volume 12.3 FL (9.6-12.0); Monocytes % 8.5 % (1.7-12.7); Neutrophils # 10.1 10*3/uL (1.4-7.4); Platelet Count 134 T/CUMM (130-400); Red Blood Count 2.87 MC/CUMM (3.8-5.5); Red Cell Distribution Width 12.2 % (9.3-17.3); White Blood Count 11.6 T/CUMM (4-12)
[2017-03-19 02:33] LABS: INR 1.1; PT Patient Result 11.3 SECS; Partial Thromboplastin Time 30.5 SECS (0-40)
[2017-03-19 02:37] LABS: Calcium 8.7 MG/DL (8.5-10.1); Magnesium 2.2 MG/DL (1.8-2.4); Osmolality,Calculated 280.5 MOS/KG (273-304); Potassium 4.6 MMOL/L (3.5-5.1)
[2017-03-19] MEDS: ALBUTEROL/IPRATROPIUM 3 ML NEB RESP TX SCH ×3 (03:34→10:51)
[2017-03-19 03:38] LABS: Lymphocytes 7 % (20-55); Platelet Estimate Normal; Segmented Neutrophils 90 % (50-85); Total Cells Counted 100
[2017-03-19 03:57] LABS: ABG HCO3 28.9 MMOL/L (20-26); ABG Oxygen Saturation 96.9 % (95-100); ABG PH 7.325 (7.35-7.45); ABG PO2 90.8 MM HG (80-95); ABG TCO2 30.2 MMOL/L (23-27); Glucose Heart Surgery 150 MG/DL (74-106); Hematocrit Heart Surgery 26.6 PERCENT (42-52); Hemoglobin Heart Surgery 8.6 G/DL (14.0-18.0); Potassium Heart/CVR 4.3 MMOL/L (3.5-5.1)
[2017-03-19] MEDS ORDERED: KETOROLAC 30 MG/1 ML VIAL IV ONE (04:08)
[2017-03-19] MEDS ORDERED: FUROSEMIDE 40 MG/4 ML VIAL IV ONE (04:08)
[2017-03-19] MEDS ORDERED: METOPROLOL TARTRATE 5 MG/5 ML VIAL IV ONE ×2 (04:10→12:48)
[2017-03-19] MEDS: ALBUMIN 5% 12.5 GM in PREMIX 1 EACH IV PRN ×2 (04:18→04:43)
[2017-03-19] MEDS: INSULIN REGULAR DRIP 100 ML IV SCH (04:18)
[2017-03-19 05:34] LABS: ABG Base Excess 4.6 MMOL/L (-2.5-2.5); ABG HCO3 28.6 MMOL/L (20-26); ABG Oxygen Saturation 98.9 % (95-100); ABG PCO2 60.7 MM HG (35-48); ABG PH 7.327 (7.35-7.45); ABG TCO2 29.7 MMOL/L (23-27); Glucose Heart Surgery 133 MG/DL (74-106); Hematocrit Heart Surgery 25.5 PERCENT (42-52); Hemoglobin Heart Surgery 8.2 G/DL (14.0-18.0); Potassium Heart/CVR 4.3 MMOL/L (3.5-5.1)
--- NOTE | 2017-03-19 07:00 | XRay Report ---
Exam: XR chest 1V portable Date: 03/19/2017 4:00 AM Indication: Postop cardiac surgery Comparison: 03/18/2017 Technical: AP Findings: [place]-Ana catheter is present with the distal tip in the pulmonary outflow tract from a right-sided approach. Nasogastric tube traverses esophagus. Previous valve replacement surgery and sternotomy wires present. Cardiomegaly is present. Low volume effusions are present. Question endotracheal tube present proximally. Mediastinal drains are present. Impression: 1. Cardiomegaly with persistent bilateral basal effusions without pneumothorax. Postop valve replacement surgical changes suspected 2. Stable position of life-support tubing 3. No obvious pneumothorax PROCEDURE INTERPRETED AT [facility] DEPARTMENT OF RADIOLOGY Final Report Signed by: Dr. Dillon Coello
[2017-03-19] MEDS: FUROSEMIDE 40 MG TABLET PO SCH (08:38)
[2017-03-19] MEDS: CEFUROXIME INJ 1,500 MG in SODIUM CHLORIDE 0.9% 100 ML IV SCH ×2 (08:42→21:36)
[2017-03-19] MEDS: CHLORHEXIDINE 0.12% ORAL RINSE 60 ML BOTTLE SWISH/SPIT SCH ×2 (08:48→21:37)
[2017-03-19] MEDS ORDERED: ASPIRIN EC 325 MG TABLET PO SCH (09:00)
[2017-03-19] MEDS ORDERED: ATORVASTATIN 40 MG TABLET PO SCH (09:00)
[2017-03-19] MEDS: INSULIN REGULAR 100 UNIT/ML SUBCUT SCH ×3 (11:41→21:32)
[2017-03-19] MEDS: METOPROLOL TARTRATE 5 MG/5 ML VIAL IV SCH ×2 (12:55→17:21)
--- NOTE | 2017-03-19 12:57 | Cardiothoracic Progress Note ---
Assessment and Plan (1) Aortic valve stenosis Status: Acute Current Visit: Yes (2) Aortic valve stenosis Status: Acute Assessment and plan: Postop day 1 status post aortic valve replacement with mechanical valve. Patient has been doing very well. Hemodynamically stable. Extubated and doing well on nasal cannula. Will DC [place]. DC [place]. Chest tubes to waterseal. Advance diet. Moved to try to telemetry. Start getting out of bed. Start aspirin, Lasix, statin.. Current Visit: Yes Exam (Progress Note) - Constitutional Vitals: Period Temp Pulse Resp BP Sys/Lutz Pulse Ox Last 24 Hr 97.4 F-99.3 F 60-112 10-19 84-168/50-87 96-105 Result/EKG - Labs CBC & BMP: 03/19/17 02:04 03/19/17 02:04 Labs: Laboratory Results - last 24 hr 03/17/17 03/18/17 03/18/17 03:45 12:45 12:45 WBC 11.3 D RBC 3.06 L Hgb 9.2 L D Hct 28.4 L MCV 92.8 MCH 30 MCHC 32.4 RDW 12.1 Plt Count 134 D MPV 11.7 Neut % (Auto) 84.3 H Lymph % (Auto) 7.7 L [place] % (Auto) 6.7 Eos % (Auto) 0.4 Baso % (Auto) 0.1 Neut # (Auto) 9.5 H Lymph # (Auto) 0.9 L [place] # (Auto) 0.8 Eos # (Auto) 0.1 Baso # (Auto) 0.0 Total Counted Immature Gran % 0.8 Nucleated RBC % 0.0 Immature Gran # 0.09 Segmented Neutrophils Lymphocytes Monocytes Nucleated RBCs # 0.00 Platelet Estimate Immature Plt Fraction 0.0 Pappenheimer Bodies INR 1.3 PT Patient/Control Mix 13.4 Circ Anticoag PTT 31.1 Patient Temperature ABG pH ABG pH at Pt Temp ABG pCO2 ABG pCO2 at Pt Temp ABG pO2 ABG pO2 at Pt Temp ABG HCO3 ABG Total CO2 ABG O2 Saturation ABG Base Excess ABG Sodium VBG pH VBG pCO2 VBG pO2 VBG HCO3 VBG Total CO2 VBG O2 Saturation VBG Base Excess Hemoglobin Hematocrit FiO2 Sodium Potassium Chloride Carbon Dioxide Anion Gap BUN Creatinine GFR Calculation BUN/Creatinine Ratio Glucose POC Glucose Calculated Osmolality Lactic Acid Calcium Venous Ioniz Calcium Magnesium Crossmatch See Detail 03/18/17 03/18/17 03/18/17 12:45 13:50 14:20 WBC RBC Hgb Hct MCV MCH MCHC RDW Plt Count MPV Neut % (Auto) Lymph % (Auto) [place] % (Auto) Eos % (Auto) Baso % (Auto) Neut # (Auto) Lymph # (Auto) [place] # (Auto) Eos # (Auto) Baso # (Auto) Total Counted Immature Gran % Nucleated RBC % Immature Gran # Segmented Neutrophils Lymphocytes Monocytes Nucleated RBCs # Platelet Estimate Immature Plt Fraction Pappenheimer Bodies INR PT Patient/Control Mix Circ Anticoag PTT Patient Temperature 37 ABG pH ABG pH at Pt Temp 7.421 ABG pCO2 ABG pCO2 at Pt Temp 47.1 ABG pO2 ABG pO2 at Pt Temp 30.4 ABG HCO3 ABG Total CO2 ABG O2 Saturation ABG Base Excess ABG Sodium 139 VBG pH 7.421 VBG pCO2 47.1 VBG pO2 30.4 VBG HCO3 28.7 H VBG Total CO2 28.6 VBG O2 Saturation 56.6 VBG Base Excess 5.4 H Hemoglobin 8.3 L Hematocrit 25.9 L FiO2 21.00 Sodium 138 Potassium 3.7 4.0 Chloride 99 Carbon Dioxide 29 Anion Gap 13.7 BUN 17 Creatinine 0.90 GFR Calculation 164 BUN/Creatinine Ratio 18.00 Glucose 211 H 220 H POC Glucose 253 H Calculated Osmolality 282.7 Lactic Acid 3.6 H Calcium 9.0 Venous Ioniz Calcium 1.19 L Magnesium 2.1 Crossmatch 03/18/17 03/18/17 03/18/17 14:59 16:04 17:05 WBC RBC Hgb Hct MCV MCH MCHC RDW Plt Count MPV Neut % (Auto) Lymph % (Auto) [place] % (Auto) Eos % (Auto) Baso % (Auto) Neut # (Auto) Lymph # (Auto) [place] # (Auto) Eos # (Auto) Baso # (Auto) Total Counted Immature Gran % Nucleated RBC % Immature Gran # Segmented Neutrophils Lymphocytes Monocytes Nucleated RBCs # Platelet Estimate Immature Plt Fraction Pappenheimer Bodies INR PT Patient/Control Mix Circ Anticoag PTT Patient Temperature ABG pH ABG pH at Pt Temp ABG pCO2 ABG pCO2 at Pt Temp ABG pO2 ABG pO2 at Pt Temp ABG HCO3 ABG Total CO2 ABG O2 Saturation ABG Base Excess ABG Sodium VBG pH VBG pCO2 VBG pO2 VBG HCO3 VBG Total CO2 VBG O2 Saturation VBG Base Excess Hemoglobin Hematocrit FiO2 Sodium Potassium Chloride Carbon Dioxide Anion Gap BUN Creatinine GFR Calculation BUN/Creatinine Ratio Glucose POC Glucose 245 H 218 H 222 H Calculated Osmolality Lactic Acid Calcium Venous Ioniz Calcium Magnesium Crossmatch 03/18/17 03/18/17 03/18/17 17:57 19:13 20:13 WBC RBC Hgb Hct MCV MCH MCHC RDW Plt Count MPV Neut % (Auto) Lymph % (Auto) [place] % (Auto) Eos % (Auto) Baso % (Auto) Neut # (Auto) Lymph # (Auto) [place] # (Auto) Eos # (Auto) Baso # (Auto) Total Counted Immature Gran % Nucleated RBC % Immature Gran # Segmented Neutrophils Lymphocytes Monocytes Nucleated RBCs # Platelet Estimate Immature Plt Fraction Pappenheimer Bodies INR PT Patient/Control Mix Circ Anticoag PTT Patient Temperature ABG pH 7.303 L ABG pH at Pt Temp ABG pCO2 66.0 H ABG pCO2 at Pt Temp ABG pO2 95.1 H ABG pO2 at Pt Temp ABG HCO3 28.8 H ABG Total CO2 30.6 H ABG O2 Saturation 96.8 ABG Base Excess 4.9 H ABG Sodium VBG pH VBG pCO2 VBG pO2 VBG HCO3 VBG Total CO2 VBG O2 Saturation VBG Base Excess Hemoglobin 8.4 L Hematocrit 26.2 L FiO2 Sodium Potassium 4.2 Chloride Carbon Dioxide Anion Gap BUN Creatinine GFR Calculation BUN/Creatinine Ratio Glucose 158 H POC Glucose 232 H 200 H Calculated Osmolality Lactic Acid Calcium Venous Ioniz Calcium Magnesium Crossmatch 03/18/17 03/18/17 03/18/17 20:57 21:05 21:59 WBC RBC Hgb Hct MCV MCH MCHC RDW Plt Count MPV Neut % (Auto) Lymph % (Auto) [place] % (Auto) Eos % (Auto) Baso % (Auto) Neut # (Auto) Lymph # (Auto) [place] # (Auto) Eos # (Auto) Baso # (Auto) Total Counted Immature Gran % Nucleated RBC % Immature Gran # Segmented Neutrophils Lymphocytes Monocytes Nucleated RBCs # Platelet Estimate Immature Plt Fraction Pappenheimer Bodies INR PT Patient/Control Mix Circ Anticoag PTT Patient Temperature ABG pH 7.334 L ABG pH at Pt Temp ABG pCO2 61.5 H ABG pCO2 at Pt Temp ABG pO2 107.0 H ABG pO2 at Pt Temp ABG HCO3 29.4 H ABG Total CO2 30.5 H ABG O2 Saturation 98.0 ABG Base Excess 5.5 H ABG Sodium VBG pH VBG pCO2 VBG pO2 VBG HCO3 VBG Total CO2 VBG O2 Saturation VBG Base Excess Hemoglobin 8.6 L Hematocrit 26.7 L FiO2 Sodium Potassium 4.1 Chloride Carbon Dioxide Anion Gap BUN Creatinine GFR Calculation BUN/Creatinine Ratio Glucose 149 H POC Glucose 161 H 170 H Calculated Osmolality Lactic Acid Calcium Venous Ioniz Calcium Magnesium Crossmatch 03/18/17 03/18/17 03/19/17 22:20 23:10 00:08 WBC RBC Hgb Hct MCV MCH MCHC RDW Plt Count MPV Neut % (Auto) Lymph % (Auto) [place] % (Auto) Eos % (Auto) Baso % (Auto) Neut # (Auto) Lymph # (Auto) [place] # (Auto) Eos # (Auto) Baso # (Auto) Total Counted Immature Gran % Nucleated RBC % Immature Gran # Segmented Neutrophils Lymphocytes Monocytes Nucleated RBCs # Platelet Estimate Immature Plt Fraction Pappenheimer Bodies INR PT Patient/Control Mix Circ Anticoag PTT Patient Temperature ABG pH ABG pH at Pt Temp ABG pCO2 ABG pCO2 at Pt Temp ABG pO2 ABG pO2 at Pt Temp ABG HCO3 ABG Total CO2 ABG O2 Saturation ABG Base Excess ABG Sodium VBG pH 7.307 VBG pCO2 67.8 H VBG pO2 35.5 VBG HCO3 29.3 H VBG Total CO2 32.0 VBG O2 Saturation 61.0 VBG Base Excess 6.0 H Hemoglobin Hematocrit FiO2 21.00 Sodium Potassium Chloride Carbon Dioxide Anion Gap BUN Creatinine GFR Calculation BUN/Creatinine Ratio Glucose POC Glucose 134 H 115 H Calculated Osmolality Lactic Acid Calcium Venous Ioniz Calcium Magnesium Crossmatch 03/19/17 03/19/17 03/19/17 00:20 01:00 02:04 WBC 11.6 RBC 2.87 L Hgb 8.6 L Hct 27.0 L MCV 94.1 MCH 30 MCHC 31.9 L RDW 12.2 Plt Count 134 MPV 12.3 H Neut % (Auto) 87.0 H Lymph % (Auto) 4.1 L [place] % (Auto) 8.5 Eos % (Auto) 0.0 Baso % (Auto) 0.0 Neut # (Auto) 10.1 H Lymph # (Auto) 0.5 L [place] # (Auto) 1.0 H Eos # (Auto) 0.0 Baso # (Auto) 0.0 Total Counted 100 Immature Gran % 0.4 Nucleated RBC % 0.0 Immature Gran # 0.05 Segmented Neutrophils 90 H Lymphocytes 7 L Monocytes 3 Nucleated RBCs # 0.00 Platelet Estimate Normal Immature Plt Fraction 0.0 Pappenheimer Bodies Race Board Attendant INR PT Patient/Control Mix Circ Anticoag PTT Patient Temperature ABG pH 7.450 7.390 ABG pH at Pt Temp ABG pCO2 45.2 55.6 H ABG pCO2 at Pt Temp ABG pO2 97.2 H 107.6 H ABG pO2 at Pt Temp ABG HCO3 30.5 H 32.9 H ABG Total CO2 29.1 H 34.6 H ABG O2 Saturation 98.5 97.6 ABG Base Excess 6.6 H 6.9 H ABG Sodium VBG pH VBG pCO2 VBG pO2 VBG HCO3 VBG Total CO2 VBG O2 Saturation VBG Base Excess Hemoglobin 8.2 L 9.3 L Hematocrit 25.6 L 27.0 L FiO2 Sodium Potassium 4.3 4.4 Chloride Carbon Dioxide Anion Gap BUN Creatinine GFR Calculation BUN/Creatinine Ratio Glucose 104 103 POC Glucose Calculated Osmolality Lactic Acid Calcium Venous Ioniz Calcium Magnesium Crossmatch 03/19/17 03/19/17 03/19/17 02:04 02:04 02:04 WBC RBC Hgb Hct MCV MCH MCHC RDW Plt Count MPV Neut % (Auto) Lymph % (Auto) [place] % (Auto) Eos % (Auto) Baso % (Auto) Neut # (Auto) Lymph # (Auto) [place] # (Auto) Eos # (Auto) Baso # (Auto) Total Counted Immature Gran % Nucleated RBC % Immature Gran # Segmented Neutrophils Lymphocytes Monocytes Nucleated RBCs # Platelet Estimate Immature Plt Fraction Pappenheimer Bodies INR 1.1 PT Patient/Control Mix 11.3 Circ Anticoag PTT 30.5 Patient Temperature ABG pH 7.347 L ABG pH at Pt Temp ABG pCO2 58.9 H ABG pCO2 at Pt Temp ABG pO2 118.0 H ABG pO2 at Pt Temp ABG HCO3 29.3 H ABG Total CO2 30.0 H ABG O2 Saturation 98.6 ABG Base Excess 5.4 H ABG Sodium VBG pH VBG pCO2 VBG pO2 VBG HCO3 VBG Total CO2 VBG O2 Saturation VBG Base Excess Hemoglobin 8.7 L Hematocrit 27.0 L FiO2 Sodium 139 Potassium 4.6 4.5 Chloride 101 Carbon Dioxide 33 H Anion Gap 9.6 BUN 17 Creatinine 0.80 GFR Calculation 172 BUN/Creatinine Ratio 21.00 H Glucose 129 H 138 H POC Glucose Calculated Osmolality 280.5 Lactic Acid Calcium 8.7 Venous Ioniz Calcium Magnesium 2.2 Crossmatch 03/19/17 03/19/17 03/19/17 03:09 03:52 05:02 WBC RBC Hgb Hct MCV MCH MCHC RDW Plt Count MPV Neut % (Auto) Lymph % (Auto) [place] % (Auto) Eos % (Auto) Baso % (Auto) Neut # (Auto) Lymph # (Auto) [place] # (Auto) Eos # (Auto) Baso # (Auto) Total Counted Immature Gran % Nucleated RBC % Immature Gran # Segmented Neutrophils Lymphocytes Monocytes Nucleated RBCs # Platelet Estimate Immature Plt Fraction Pappenheimer Bodies INR PT Patient/Control Mix Circ Anticoag PTT Patient Temperature ABG pH 7.325 L ABG pH at Pt Temp ABG pCO2 62.0 H ABG pCO2 at Pt Temp ABG pO2 90.8 ABG pO2 at Pt Temp ABG HCO3 28.9 H ABG Total CO2 30.2 H ABG O2 Saturation 96.9 ABG Base Excess 5.0 H ABG Sodium VBG pH VBG pCO2 VBG pO2 VBG HCO3 VBG Total CO2 VBG O2 Saturation VBG Base Excess Hemoglobin 8.6 L Hematocrit 26.6 L FiO2 Sodium Potassium 4.3 Chloride Carbon Dioxide Anion Gap BUN Creatinine GFR Calculation BUN/Creatinine Ratio Glucose 150 H POC Glucose 120 H 140 H Calculated Osmolality Lactic Acid Calcium Venous Ioniz Calcium Magnesium Crossmatch 03/19/17 03/19/17 03/19/17 05:30 07:11 11:36 WBC RBC Hgb Hct MCV MCH MCHC RDW Plt Count MPV Neut % (Auto) Lymph % (Auto) [place] % (Auto) Eos % (Auto) Baso % (Auto) Neut # (Auto) Lymph # (Auto) [place] # (Auto) Eos # (Auto) Baso # (Auto) Total Counted Immature Gran % Nucleated RBC % Immature Gran # Segmented Neutrophils Lymphocytes Monocytes Nucleated RBCs # Platelet Estimate Immature Plt Fraction Pappenheimer Bodies INR PT Patient/Control Mix Circ Anticoag PTT Patient Temperature ABG pH 7.327 L ABG pH at Pt Temp ABG pCO2 60.7 H ABG pCO2 at Pt Temp ABG pO2 142.0 H ABG pO2 at Pt Temp ABG HCO3 28.6 H ABG Total CO2 29.7 H ABG O2 Saturation 98.9 ABG Base Excess 4.6 H ABG Sodium VBG pH VBG pCO2 VBG pO2 VBG HCO3 VBG Total CO2 VBG O2 Saturation VBG Base Excess Hemoglobin 8.2 L Hematocrit 25.5 L FiO2 Sodium Potassium 4.3 Chloride Carbon Dioxide Anion Gap BUN Creatinine GFR Calculation BUN/Creatinine Ratio Glucose 133 H POC Glucose 110 H 213 H Calculated Osmolality Lactic Acid Calcium Venous Ioniz Calcium Magnesium Crossmatch Quality Measures - VTE Contraindication to Pharmacological VTE Prophylaxis: Active Bleeding Specialty Discharge - Follow Up or Referrals
--- NOTE | 2017-03-19 14:22 | Pathology Report from [facility] ---
[facility] ACCESSION # : [id number] PATIENT NAME : Kenan Rodriguez ORDERING DR : Shabana Vazquez MD CLINICAL HX: Aortic stenosis POST-OP DX: Same SPECIMEN INFO: Aortic valve GROSS DESCRIPTION: The specimen is received in formalin labeled with the patients name and consists of multiple fragments of a partially calcified valve tissue measuring 6.0 x 2.0 cm in aggregate. Steam Flattener sections submitted in one cassette following decalcification. DIAGNOSIS FOR KENAN RODRIGUEZ: Calcified aortic valve leaflets consistent with stenosis. COLLECTED DATE: 03/18/2017 [facility] REPORT DATE: 03/19/2017 ELECTRONICALLY SIGNED BY: Denys Hicks M.D. 03/19/2017 - 9:23:59 [facility] SYSTEMJacquelyn
[2017-03-19 15:09] LABS: Basophils % 0.1 % (0.0-0.8); Hematocrit 26.7 VOL% (42.0-52.0); Hemoglobin 8.5 GM/DL (14.0-18.0); Immature Granulocytes % 0.5 %; Immature Granulocytes Absolute 0.09 #; Lymphocytes # 0.6 10*3/uL (1.4-4.0); Lymphocytes % 3.2 % (21.2-54.2); Mean Corpuscular HGB Conc 31.8 GM/DL (32-36); Mean Corpuscular Hemoglobin 30 PG (27-34); Mean Corpuscular Volume 94.7 FL (87-102); Monocytes # 1.8 10*3/uL (0.11-0.8); Monocytes % 10.1 % (1.7-12.7); Neutrophils # 15.8 10*3/uL (1.4-7.4); Neutrophils % 86.1 % (38.7-73.9); Platelet Count 144 T/CUMM (130-400); Red Blood Count 2.82 MC/CUMM (3.8-5.5); Red Cell Distribution Width 12.3 % (9.3-17.3); White Blood Count 18.3 T/CUMM (4-12)
[2017-03-19] MEDS: FLUTICASONE/SALMETEROL 250-50 DISKUS 14 DOSE INH SCH ×2 (15:48→21:35)
[2017-03-19] MEDS: FLUTICASONE 50 MCG NASAL SPRAY 16 GM BOTTLE BOTH NARES SCH ×2 (15:48→21:34)
[2017-03-19 16:30] LABS: Lymphocytes 5 % (20-55); Segmented Neutrophils 93 % (50-85); Total Cells Counted 100
[2017-03-19 16:31] LABS: Platelet Estimate Normal
--- NOTE | 2017-03-19 17:19 | Cardiology Progress Note ---
Octavio Lee Lesley, STEPHANI, am scribing for, and in the presence of, Stephanie Damon MD 17:19. Assessment and Plan - Time spent with patient Time spent with patient: Greater than 30 minutes (1) Aortic valve stenosis Status: Acute Assessment and plan: See plan of care listed below Current Visit: Yes (2) Nonischemic cardiomyopathy Status: Chronic Assessment and plan: See plan of care listed below Current Visit: Yes (3) Pulmonary hypertension Status: Chronic Assessment and plan: See plan of care listed below Current Visit: Yes (4) Congestive heart failure Status: Chronic Assessment and plan: See plan of care listed below Current Visit: Yes Qualifiers: Congestive heart failure chronicity: acute on chronic (5) History of asthma Status: Chronic Assessment and plan: The plan of care listed below Current Visit: No Cardiology - PN: Subj Interval history: Core Analysis Operator: Dr. Clark at [facility] Summary Mr. Guerrero is a 61 year old male without known history of coronary artery disease, routinely followed by [facility]. Patient has cardiac risk factors significant for hypertension, sedentary lifestyle, family history of heart disease (mother) and obesity. Past medical history of asthma patient reports that he does chew tobacco daily. Patient was transferred to [facility] from [facility] yesterday, March 16, 2017. He underwent heart catheterization 03/16/17 at [facility] that revealed severe aortic stenosis. Coronaries were free of significant obstructive disease. He was transferred to our facility for aortic valve replacement surgery Per Dr. Marty Child. Cardiology has been consulted to follow as patient does have symptoms of congestive heart failure most likely secondary to his aortic stenosis and systolic dysfunction. Echocardiogram performed at our facility revealed severely reduced LV systolic function with global hypokinesis, ejection fraction at 20-25%. Severe aortic stenosis was noted. The patient underwent surgery per Dr. Vazquez for mechanical valve placement to the aortic valve. March 19, 2017 update: Patient is postop day 1 implantation of mechanical aortic valve. Patient is seen sitting up in a chair in no acute distress. He is on 2 L of oxygen by nasal cannula and does appear somewhat sedated. He is arousable with contact stimulation. Labs are reviewed today and reveal decreased hemoglobin and hematocrit, this is expected and a minimal drop from post surgery values obtained on 03/18/2017. The patient is off all pressors, and did restart aspirin this morning but has not restarted anticoagulation therapy. This will be done by Dr. Vazquez. We will continue to follow from a cardiology standpoint. ASSESSMENT/PLAN 1. SEVERE AORTIC STENOSIS - Patient underwent implantation of mechanical aortic valve on 03/18/[address] Vazquez. Patient is doing well postoperatively. Anticoagulation will be initiated at the discretion of CV surgery. 2. CONGESTIVE HEART FAILURE - Chronicity of this is unknown. Secondary to patient's severe aortic stenosis as well as systolic dysfunction. Chest x-ray was reviewed today we will continue to diurese patient. Continue daily weights and strict I's and O's. 3. NONISCHEMIC CARDIOMYOPATHY - Most recent ejection fraction noted to be 20- 25%. The patient underwent heart catheterization at [facility] earlier this week which did not reveal any obstructive coronary artery disease. Will treat this medically. Will add DANAE inhibitor and beta blockade when blood pressure will allow post surgery. Patient will need repeat echocardiogram in 90 days in order to reassess his systolic function. He may be a candidate for ICD at that point. 4. PULMONARY HYPERTENSION - Continue current plan of care. 5. HISTORY OF ASTHMA - Clinically stable at present. Continue current plan of care. Exam (Progress Note) - Constitutional Vitals: Period Temp Pulse Resp BP Sys/Lutz Pulse Ox Last 24 Hr 97 F-99.3 F 60-112 10-19 84-168/50-87 97-105 Exam: General: Appears in no apparent distress. Arousable to stimulation. Appears comfortable. HEENT: PERRL, normocephalic, atraumatic. Mucous membranes moist. No jaundice noted. Conjunctiva moist and clear, sclerae anicteric. Neck: Right internal jugular catheter is present. No JVD/HJR, no thyromegaly or lymphadenopathy noted. Cardiac: Regular rate and rhythm. Mechanical S2. No murmur rub or gallop. PMI is nondisplaced. Lungs: Clear to auscultation without accessory muscle use to assist the respiratory pattern. Oxygen in use via nasal cannula. Abdomen: Soft, bowel sounds quiet. Nontender and nondistended. No masses noted. Musculoskeletal: No fluid collection. Decreased range of motion is noted. Extremities: No clubbing, cyanosis noted. 2+ bilateral extremity edema noted. Upper extremity pulses 2+. Lower extremity pulses 2+. Skin: Dressing intact to midsternal region. Neuro: Sedated, arousable and oriented 3. Moves all extremities well without hemiparesis or paralysis. No essential tremor is appreciated. Result/EKG - Labs CBC & BMP: 03/19/17 14:49 03/19/17 02:04 Lab Results: I have reviewed the past 24 hour labs Labs: Laboratory Results - last 24 hr 03/17/17 03/18/17 03/18/17 03:45 11:30 11:30 WBC RBC Hgb Hct MCV MCH MCHC RDW Plt Count 97 L D MPV Neut % (Auto) Lymph % (Auto) [place] % (Auto) Eos % (Auto) Baso % (Auto) Neut # (Auto) Lymph # (Auto) [place] # (Auto) Eos # (Auto) Baso # (Auto) Total Counted Immature Gran % Nucleated RBC % Immature Gran # Segmented Neutrophils Lymphocytes Monocytes Nucleated RBCs # Platelet Estimate Immature Plt Fraction Pappenheimer Bodies INR PT Patient/Control Mix Circ Anticoag PTT Patient Temperature 37 ABG pH 7.526 H ABG pH at Pt Temp 7.526 ABG pCO2 33.6 L ABG pCO2 at Pt Temp 33.6 ABG pO2 195.8 H ABG pO2 at Pt Temp 195.8 ABG HCO3 27.2 H ABG Total CO2 28.2 H ABG O2 Saturation 99.1 ABG Base Excess 4.5 H ABG Sodium 133 L VBG pH VBG pCO2 VBG pO2 VBG HCO3 VBG Total CO2 VBG O2 Saturation VBG Base Excess Hemoglobin 10.2 L Hematocrit 30.0 L Potassium 4.0 Glucose 232 H Ionized Calcium 1.19 L FiO2 Sodium Chloride Carbon Dioxide Anion Gap BUN Creatinine GFR Calculation BUN/Creatinine Ratio Calculated Osmolality Lactic Acid Calcium Venous Ioniz Calcium Magnesium Blood Type O POSITIVE Antibody Screen Negative Crossmatch See Detail 03/18/17 03/18/17 03/18/17 12:45 12:45 12:45 WBC 11.3 D RBC 3.06 L Hgb 9.2 L D Hct 28.4 L MCV 92.8 MCH 30 MCHC 32.4 RDW 12.1 Plt Count 134 D MPV 11.7 Neut % (Auto) 84.3 H Lymph % (Auto) 7.7 L [place] % (Auto) 6.7 Eos % (Auto) 0.4 Baso % (Auto) 0.1 Neut # (Auto) 9.5 H Lymph # (Auto) 0.9 L [place] # (Auto) 0.8 Eos # (Auto) 0.1 Baso # (Auto) 0.0 Total Counted Immature Gran % 0.8 Nucleated RBC % 0.0 Immature Gran # 0.09 Segmented Neutrophils Lymphocytes Monocytes Nucleated RBCs # 0.00 Platelet Estimate Immature Plt Fraction 0.0 Pappenheimer Bodies INR 1.3 PT Patient/Control Mix 13.4 Circ Anticoag PTT 31.1 Patient Temperature ABG pH ABG pH at Pt Temp ABG pCO2 ABG pCO2 at Pt Temp ABG pO2 ABG pO2 at Pt Temp ABG HCO3 ABG Total CO2 ABG O2 Saturation ABG Base Excess ABG Sodium VBG pH VBG pCO2 VBG pO2 VBG HCO3 VBG Total CO2 VBG O2 Saturation VBG Base Excess Hemoglobin Hematocrit Potassium 3.7 Glucose 211 H Ionized Calcium FiO2 Sodium 138 Chloride 99 Carbon Dioxide 29 Anion Gap 13.7 BUN 17 Creatinine 0.90 GFR Calculation 164 BUN/Creatinine Ratio 18.00 Calculated Osmolality 282.7 Lactic Acid 3.6 H Calcium 9.0 Venous Ioniz Calcium Magnesium 2.1 Blood Type Antibody Screen Crossmatch 03/18/17 03/18/17 03/18/17 12:45 13:50 20:13 WBC RBC Hgb Hct MCV MCH MCHC RDW Plt Count MPV Neut % (Auto) Lymph % (Auto) [place] % (Auto) Eos % (Auto) Baso % (Auto) Neut # (Auto) Lymph # (Auto) [place] # (Auto) Eos # (Auto) Baso # (Auto) Total Counted Immature Gran % Nucleated RBC % Immature Gran # Segmented Neutrophils Lymphocytes Monocytes Nucleated RBCs # Platelet Estimate Immature Plt Fraction Pappenheimer Bodies INR PT Patient/Control Mix Circ Anticoag PTT Patient Temperature 37 ABG pH 7.578 H 7.303 L ABG pH at Pt Temp 7.421 ABG pCO2 30.5 L 66.0 H ABG pCO2 at Pt Temp 47.1 ABG pO2 327.2 H 95.1 H ABG pO2 at Pt Temp 30.4 ABG HCO3 27.8 H 28.8 H ABG Total CO2 28.8 H 30.6 H ABG O2 Saturation 99.5 96.8 ABG Base Excess 6.0 H 4.9 H ABG Sodium 139 VBG pH 7.421 VBG pCO2 47.1 VBG pO2 30.4 VBG HCO3 28.7 H VBG Total CO2 28.6 VBG O2 Saturation 56.6 VBG Base Excess 5.4 H Hemoglobin 10.1 L 8.3 L 8.4 L Hematocrit 30.0 L 25.9 L 26.2 L Potassium 3.6 4.0 4.2 Glucose 213 H 220 H 158 H Ionized Calcium FiO2 21.00 Sodium Chloride Carbon Dioxide Anion Gap BUN Creatinine GFR Calculation BUN/Creatinine Ratio Calculated Osmolality Lactic Acid Calcium Venous Ioniz Calcium 1.19 L Magnesium Blood Type Antibody Screen Crossmatch 03/18/17 03/18/17 03/19/17 21:05 22:20 00:20 WBC RBC Hgb Hct MCV MCH MCHC RDW Plt Count MPV Neut % (Auto) Lymph % (Auto) [place] % (Auto) Eos % (Auto) Baso % (Auto) Neut # (Auto) Lymph # (Auto) [place] # (Auto) Eos # (Auto) Baso # (Auto) Total Counted Immature Gran % Nucleated RBC % Immature Gran # Segmented Neutrophils Lymphocytes Monocytes Nucleated RBCs # Platelet Estimate Immature Plt Fraction Pappenheimer Bodies INR PT Patient/Control Mix Circ Anticoag PTT Patient Temperature ABG pH 7.334 L 7.450 ABG pH at Pt Temp ABG pCO2 61.5 H 45.2 ABG pCO2 at Pt Temp ABG pO2 107.0 H 97.2 H ABG pO2 at Pt Temp ABG HCO3 29.4 H 30.5 H ABG Total CO2 30.5 H 29.1 H ABG O2 Saturation 98.0 98.5 ABG Base Excess 5.5 H 6.6 H ABG Sodium VBG pH 7.307 VBG pCO2 67.8 H VBG pO2 35.5 VBG HCO3 29.3 H VBG Total CO2 32.0 VBG O2 Saturation 61.0 VBG Base Excess 6.0 H Hemoglobin 8.6 L 8.2 L Hematocrit 26.7 L 25.6 L Potassium 4.1 4.3 Glucose 149 H 104 Ionized Calcium FiO2 21.00 Sodium Chloride Carbon Dioxide Anion Gap BUN Creatinine GFR Calculation BUN/Creatinine Ratio Calculated Osmolality Lactic Acid Calcium Venous Ioniz Calcium Magnesium Blood Type Antibody Screen Crossmatch 03/19/17 03/19/17 03/19/17 01:00 02:04 02:04 WBC 11.6 RBC 2.87 L Hgb 8.6 L Hct 27.0 L MCV 94.1 MCH 30 MCHC 31.9 L RDW 12.2 Plt Count 134 MPV 12.3 H Neut % (Auto) 87.0 H Lymph % (Auto) 4.1 L [place] % (Auto) 8.5 Eos % (Auto) 0.0 Baso % (Auto) 0.0 Neut # (Auto) 10.1 H Lymph # (Auto) 0.5 L [place] # (Auto) 1.0 H Eos # (Auto) 0.0 Baso # (Auto) 0.0 Total Counted 100 Immature Gran % 0.4 Nucleated RBC % 0.0 Immature Gran # 0.05 Segmented Neutrophils 90 H Lymphocytes 7 L Monocytes 3 Nucleated RBCs # 0.00 Platelet Estimate Normal Immature Plt Fraction 0.0 Pappenheimer Bodies Store Clerk Cashier INR PT Patient/Control Mix Circ Anticoag PTT Patient Temperature ABG pH 7.390 ABG pH at Pt Temp ABG pCO2 55.6 H ABG pCO2 at Pt Temp ABG pO2 107.6 H ABG pO2 at Pt Temp ABG HCO3 32.9 H ABG Total CO2 34.6 H ABG O2 Saturation 97.6 ABG Base Excess 6.9 H ABG Sodium VBG pH VBG pCO2 VBG pO2 VBG HCO3 VBG Total CO2 VBG O2 Saturation VBG Base Excess Hemoglobin 9.3 L Hematocrit 27.0 L Potassium 4.4 4.6 Glucose 103 129 H Ionized Calcium FiO2 Sodium 139 Chloride 101 Carbon Dioxide 33 H Anion Gap 9.6 BUN 17 Creatinine 0.80 GFR Calculation 172 BUN/Creatinine Ratio 21.00 H Calculated Osmolality 280.5 Lactic Acid Calcium 8.7 Venous Ioniz Calcium Magnesium 2.2 Blood Type Antibody Screen Crossmatch 03/19/17 03/19/17 03/19/17 02:04 02:04 03:52 WBC RBC Hgb Hct MCV MCH MCHC RDW Plt Count MPV Neut % (Auto) Lymph % (Auto) [place] % (Auto) Eos % (Auto) Baso % (Auto) Neut # (Auto) Lymph # (Auto) [place] # (Auto) Eos # (Auto) Baso # (Auto) Total Counted Immature Gran % Nucleated RBC % Immature Gran # Segmented Neutrophils Lymphocytes Monocytes Nucleated RBCs # Platelet Estimate Immature Plt Fraction Pappenheimer Bodies INR 1.1 PT Patient/Control Mix 11.3 Circ Anticoag PTT 30.5 Patient Temperature ABG pH 7.347 L 7.325 L ABG pH at Pt Temp ABG pCO2 58.9 H 62.0 H ABG pCO2 at Pt Temp ABG pO2 118.0 H 90.8 ABG pO2 at Pt Temp ABG HCO3 29.3 H 28.9 H ABG Total CO2 30.0 H 30.2 H ABG O2 Saturation 98.6 96.9 ABG Base Excess 5.4 H 5.0 H ABG Sodium VBG pH VBG pCO2 VBG pO2 VBG HCO3 VBG Total CO2 VBG O2 Saturation VBG Base Excess Hemoglobin 8.7 L 8.6 L Hematocrit 27.0 L 26.6 L Potassium 4.5 4.3 Glucose 138 H 150 H Ionized Calcium FiO2 Sodium Chloride Carbon Dioxide Anion Gap BUN Creatinine GFR Calculation BUN/Creatinine Ratio Calculated Osmolality Lactic Acid Calcium Venous Ioniz Calcium Magnesium Blood Type Antibody Screen Crossmatch 03/19/17 05:30 WBC RBC Hgb Hct MCV MCH MCHC RDW Plt Count MPV Neut % (Auto) Lymph % (Auto) [place] % (Auto) Eos % (Auto) Baso % (Auto) Neut # (Auto) Lymph # (Auto) [place] # (Auto) Eos # (Auto) Baso # (Auto) Total Counted Immature Gran % Nucleated RBC % Immature Gran # Segmented Neutrophils Lymphocytes Monocytes Nucleated RBCs # Platelet Estimate Immature Plt Fraction Pappenheimer Bodies INR PT Patient/Control Mix Circ Anticoag PTT Patient Temperature ABG pH 7.327 L ABG pH at Pt Temp ABG pCO2 60.7 H ABG pCO2 at Pt Temp ABG pO2 142.0 H ABG pO2 at Pt Temp ABG HCO3 28.6 H ABG Total CO2 29.7 H ABG O2 Saturation 98.9 ABG Base Excess 4.6 H ABG Sodium VBG pH VBG pCO2 VBG pO2 VBG HCO3 VBG Total CO2 VBG O2 Saturation VBG Base Excess Hemoglobin 8.2 L Hematocrit 25.5 L Potassium 4.3 Glucose 133 H Ionized Calcium FiO2 Sodium Chloride Carbon Dioxide Anion Gap BUN Creatinine GFR Calculation BUN/Creatinine Ratio Calculated Osmolality Lactic Acid Calcium Venous Ioniz Calcium Magnesium Blood Type Antibody Screen Crossmatch Quality Measures - VTE Contraindication to Pharmacological VTE Prophylaxis: Active Bleeding Specialty Discharge - Follow Up or Referrals Nelson Lee Jennifer, MD, personally performed the services described in this documentation, ascribed by Linda Cunningham NP in my presence, and it is both accurate and complete .
[2017-03-19] MEDS ORDERED: METOPROLOL TARTRATE 5 MG/5 ML VIAL IV SCH (18:00)
[2017-03-19] MEDS: METOPROLOL TARTRATE 25 MG TABLET PO SCH (21:33)
[2017-03-20] MEDS: INSULIN REGULAR 100 UNIT/ML SUBCUT SCH ×6 (01:04→21:59)
[2017-03-20] MEDS: METOPROLOL TARTRATE 5 MG/5 ML VIAL IV SCH ×3 (01:09→11:42)
[2017-03-20 05:24] LABS: Hematocrit 22.5 VOL% (42.0-52.0); Hemoglobin 7.2 GM/DL (14.0-18.0); Immature Granulocytes % 0.6 %; Immature Granulocytes Absolute 0.09 #; Lymphocytes # 0.9 10*3/uL (1.4-4.0); Lymphocytes % 6.1 % (21.2-54.2); Mean Corpuscular Hemoglobin 30 PG (27-34); Mean Corpuscular Volume 94.9 FL (87-102); Mean Platelet Volume 12.4 FL (9.6-12.0); Monocytes # 1.7 10*3/uL (0.11-0.8); Monocytes % 11.2 % (1.7-12.7); Neutrophils # 12.5 10*3/uL (1.4-7.4); Neutrophils % 82.1 % (38.7-73.9); Platelet Count 136 T/CUMM (130-400); Red Blood Count 2.37 MC/CUMM (3.8-5.5); Red Cell Distribution Width 12.4 % (9.3-17.3); White Blood Count 15.2 T/CUMM (4-12)
[2017-03-20 05:51] LABS: Calcium 6.9 MG/DL (8.5-10.1); Magnesium 1.7 MG/DL (1.8-2.4); Osmolality,Calculated 285.1 MOS/KG (273-304); Potassium 3.5 MMOL/L (3.5-5.1)
[2017-03-20 05:54] LABS: Calcium 7.3 MG/DL (8.5-10.1); Magnesium 1.9 MG/DL (1.8-2.4); Potassium 3.5 MMOL/L (3.5-5.1)
[2017-03-20] MEDS: SODIUM CHLORIDE 0.45% 1,000 ML IV SCH ×2 (06:36→06:59)
[2017-03-20] MEDS: FLUTICASONE/SALMETEROL 250-50 DISKUS 14 DOSE INH SCH ×2 (08:20→20:32)
[2017-03-20] MEDS: FUROSEMIDE 40 MG TABLET PO SCH (08:20)
[2017-03-20] MEDS: METOPROLOL TARTRATE 25 MG TABLET PO SCH ×2 (08:20→20:32)
[2017-03-20] MEDS: FLUTICASONE 50 MCG NASAL SPRAY 16 GM BOTTLE BOTH NARES SCH ×2 (08:21→20:32)
[2017-03-20] MEDS: CHLORHEXIDINE 0.12% ORAL RINSE 60 ML BOTTLE SWISH/SPIT SCH ×2 (08:21→20:32)
[2017-03-20] MEDS ORDERED: FUROSEMIDE 40 MG/4 ML VIAL IV ONE (10:21)
--- NOTE | 2017-03-20 10:26 | Cardiothoracic Progress Note ---
Assessment and Plan (1) Aortic valve stenosis Status: Acute Current Visit: Yes (2) Aortic valve stenosis Status: Acute Assessment and plan: Postop day 2 status post aortic valve replacement with mechanical valve. Patient has been doing very well. Hemodynamically stable. no complaints. DC Chest tubes, ambulate, replace K and Mg, give IV lasix 40mg. Current Visit: Yes Exam (Progress Note) - Constitutional Vitals: Period Temp Pulse Resp BP Sys/Lutz Pulse Ox Last 24 Hr 97.6 F-99.3 F 75-101 13-20 104-137/55-77 96-100 Result/EKG - Labs CBC & BMP: 03/20/17 04:38 03/20/17 04:38 Labs: Laboratory Results - last 24 hr 03/17/17 03/18/17 03/18/17 03:45 14:20 14:59 WBC RBC Hgb Hct MCV MCH MCHC RDW Plt Count MPV Neut % (Auto) Lymph % (Auto) [place] % (Auto) Eos % (Auto) Baso % (Auto) Neut # (Auto) Lymph # (Auto) [place] # (Auto) Eos # (Auto) Baso # (Auto) Total Counted Immature Gran % Nucleated RBC % Immature Gran # Segmented Neutrophils Lymphocytes Monocytes Nucleated RBCs # Platelet Estimate Immature Plt Fraction Sodium Potassium Chloride Carbon Dioxide Anion Gap BUN Creatinine GFR Calculation BUN/Creatinine Ratio Glucose POC Glucose 253 H 245 H Calculated Osmolality Calcium Magnesium Crossmatch See Detail 03/18/17 03/18/17 03/18/17 16:04 17:05 17:57 WBC RBC Hgb Hct MCV MCH MCHC RDW Plt Count MPV Neut % (Auto) Lymph % (Auto) [place] % (Auto) Eos % (Auto) Baso % (Auto) Neut # (Auto) Lymph # (Auto) [place] # (Auto) Eos # (Auto) Baso # (Auto) Total Counted Immature Gran % Nucleated RBC % Immature Gran # Segmented Neutrophils Lymphocytes Monocytes Nucleated RBCs # Platelet Estimate Immature Plt Fraction Sodium Potassium Chloride Carbon Dioxide Anion Gap BUN Creatinine GFR Calculation BUN/Creatinine Ratio Glucose POC Glucose 218 H 222 H 232 H Calculated Osmolality Calcium Magnesium Crossmatch 03/18/17 03/18/17 03/18/17 19:13 20:57 21:59 WBC RBC Hgb Hct MCV MCH MCHC RDW Plt Count MPV Neut % (Auto) Lymph % (Auto) [place] % (Auto) Eos % (Auto) Baso % (Auto) Neut # (Auto) Lymph # (Auto) [place] # (Auto) Eos # (Auto) Baso # (Auto) Total Counted Immature Gran % Nucleated RBC % Immature Gran # Segmented Neutrophils Lymphocytes Monocytes Nucleated RBCs # Platelet Estimate Immature Plt Fraction Sodium Potassium Chloride Carbon Dioxide Anion Gap BUN Creatinine GFR Calculation BUN/Creatinine Ratio Glucose POC Glucose 200 H 161 H 170 H Calculated Osmolality Calcium Magnesium Crossmatch 03/18/17 03/19/17 03/19/17 23:10 00:08 03:09 WBC RBC Hgb Hct MCV MCH MCHC RDW Plt Count MPV Neut % (Auto) Lymph % (Auto) [place] % (Auto) Eos % (Auto) Baso % (Auto) Neut # (Auto) Lymph # (Auto) [place] # (Auto) Eos # (Auto) Baso # (Auto) Total Counted Immature Gran % Nucleated RBC % Immature Gran # Segmented Neutrophils Lymphocytes Monocytes Nucleated RBCs # Platelet Estimate Immature Plt Fraction Sodium Potassium Chloride Carbon Dioxide Anion Gap BUN Creatinine GFR Calculation BUN/Creatinine Ratio Glucose POC Glucose 134 H 115 H 120 H Calculated Osmolality Calcium Magnesium Crossmatch 03/19/17 03/19/17 03/19/17 05:02 07:11 11:36 WBC RBC Hgb Hct MCV MCH MCHC RDW Plt Count MPV Neut % (Auto) Lymph % (Auto) [place] % (Auto) Eos % (Auto) Baso % (Auto) Neut # (Auto) Lymph # (Auto) [place] # (Auto) Eos # (Auto) Baso # (Auto) Total Counted Immature Gran % Nucleated RBC % Immature Gran # Segmented Neutrophils Lymphocytes Monocytes Nucleated RBCs # Platelet Estimate Immature Plt Fraction Sodium Potassium Chloride Carbon Dioxide Anion Gap BUN Creatinine GFR Calculation BUN/Creatinine Ratio Glucose POC Glucose 140 H 110 H 213 H Calculated Osmolality Calcium Magnesium Crossmatch 03/19/17 03/19/17 03/19/17 14:49 16:10 19:12 WBC 18.3 H D RBC 2.82 L Hgb 8.5 L Hct 26.7 L MCV 94.7 MCH 30 MCHC 31.8 L RDW 12.3 Plt Count 144 MPV 12.0 Neut % (Auto) 86.1 H Lymph % (Auto) 3.2 L [place] % (Auto) 10.1 Eos % (Auto) 0.0 Baso % (Auto) 0.1 Neut # (Auto) 15.8 H Lymph # (Auto) 0.6 L [place] # (Auto) 1.8 H Eos # (Auto) 0.0 Baso # (Auto) 0.0 Total Counted 100 Immature Gran % 0.5 Nucleated RBC % 0.0 Immature Gran # 0.09 Segmented Neutrophils 93 H Lymphocytes 5 L Monocytes 2 Nucleated RBCs # 0.00 Platelet Estimate Normal Immature Plt Fraction 0.0 Sodium Potassium Chloride Carbon Dioxide Anion Gap BUN Creatinine GFR Calculation BUN/Creatinine Ratio Glucose POC Glucose 184 H 213 H Calculated Osmolality Calcium Magnesium Crossmatch 03/20/17 03/20/17 03/20/17 00:50 04:09 04:38 WBC 15.2 H RBC 2.37 L Hgb 7.2 L Hct 22.5 L MCV 94.9 MCH 30 MCHC 32.0 RDW 12.4 Plt Count 136 MPV 12.4 H Neut % (Auto) 82.1 H Lymph % (Auto) 6.1 L [place] % (Auto) 11.2 Eos % (Auto) 0.0 Baso % (Auto) 0.0 Neut # (Auto) 12.5 H Lymph # (Auto) 0.9 L [place] # (Auto) 1.7 H Eos # (Auto) 0.0 Baso # (Auto) 0.0 Total Counted Immature Gran % 0.6 Nucleated RBC % 0.0 Immature Gran # 0.09 Segmented Neutrophils Lymphocytes Monocytes Nucleated RBCs # 0.00 Platelet Estimate Immature Plt Fraction 0.0 Sodium Potassium Chloride Carbon Dioxide Anion Gap BUN Creatinine GFR Calculation BUN/Creatinine Ratio Glucose POC Glucose 196 H 181 H Calculated Osmolality Calcium Magnesium Crossmatch 03/20/17 03/20/17 03/20/17 04:38 04:38 07:24 WBC RBC Hgb Hct MCV MCH MCHC RDW Plt Count MPV Neut % (Auto) Lymph % (Auto) [place] % (Auto) Eos % (Auto) Baso % (Auto) Neut # (Auto) Lymph # (Auto) [place] # (Auto) Eos # (Auto) Baso # (Auto) Total Counted Immature Gran % Nucleated RBC % Immature Gran # Segmented Neutrophils Lymphocytes Monocytes Nucleated RBCs # Platelet Estimate Immature Plt Fraction Sodium 142 143 Potassium 3.5 3.5 Chloride 107 108 H Carbon Dioxide 29 28 Anion Gap 9.5 10.5 BUN 18 17 Creatinine 0.60 L 0.60 L GFR Calculation 194 194 BUN/Creatinine Ratio 30.00 H 28.00 H Glucose 119 H 121 H POC Glucose 150 H Calculated Osmolality 285.1 287.0 Calcium 6.9 L D 7.3 L Magnesium 1.7 L 1.9 Crossmatch Quality Measures - VTE Contraindication to Pharmacological VTE Prophylaxis: Active Bleeding Specialty Discharge - Follow Up or Referrals
[2017-03-20] MEDS: POTASSIUM CHLORIDE RIDER 10 MEQ in PREMIX 1 EACH IV PRN (10:39)
[2017-03-20] MEDS: POTASSIUM CHLORIDE RIDER 20 MEQ in PREMIX 1 EACH IV PRN ×2 (11:43→18:05)
--- NOTE | 2017-03-20 12:28 | XRay Report ---
History: Postop thoracotomy. Evaluate for pneumothorax Date: 03/20/2017 Study: Chest x-ray AP portable Comparison exam: 03/19/2017 There has been interval removal of the right Sumner-Ana catheter, endotracheal tube, nasogastric tube. There is no pneumothorax. There is continued cardiomegaly. There is mild pulmonary vascular engorgement, slightly improved. There is no mediastinal mass in this patient status post prior median sternotomy. There is some patchy and hazy edema in the lung bases. There is continued mild bilateral pleural effusion. Osseous structures are unchanged. There is no new or worsening process. Impression: No evidence of a pneumothorax following Sumner-Ana catheter removal. Interval endotracheal and nasogastric tube removal. Continued congestive heart failure with some residual bibasilar pulmonary edema and bilateral pleural effusion, though this has mildly improved. No interval worsening PROCEDURE INTERPRETED AT [facility] DEPARTMENT OF RADIOLOGY Final Report Signed by: Dr. Kathya Griffin
--- NOTE | 2017-03-20 13:26 | Cardiology Progress Note ---
Assessment and Plan (1) Aortic valve stenosis Status: Acute Assessment and plan: See plan of care listed below Current Visit: Yes (2) Nonischemic cardiomyopathy Status: Chronic Assessment and plan: See plan of care listed below Current Visit: Yes (3) Pulmonary hypertension Status: Chronic Assessment and plan: See plan of care listed below Current Visit: Yes (4) Congestive heart failure Status: Chronic Assessment and plan: See plan of care listed below Current Visit: Yes Qualifiers: Congestive heart failure chronicity: acute on chronic (5) History of asthma Status: Chronic Assessment and plan: The plan of care listed below Current Visit: No Cardiology - PN: Subj Interval history: Cpc: Dr. Clark at [facility] Summary Mr. Guerrero is a 61 year old male without known history of coronary artery disease, routinely followed by [facility]ology. Patient has cardiac risk factors significant for hypertension, sedentary lifestyle, family history of heart disease (mother) and obesity. Past medical history of asthma patient reports that he does chew tobacco daily. He underwent heart catheterization at [facility] that revealed severe aortic stenosis. Coronaries were free of significant obstructive disease. He was transferred to our facility for aortic valve replacement surgery Per Dr. Vazquez. Echocardiogram revealed severely reduced LV systolic function with global hypokinesis, ejection fraction at 20-25%, Severe aortic stenosis. The patient underwent surgery per Dr. Vazquez for mechanical valve placement to the aortic valve. March 20, 2017: He is postop day 2 and symptomatically seems to be doing well. He feels somewhat improved compared to yesterday. Hemodynamics are stable. ASSESSMENT/PLAN 1. SEVERE AORTIC STENOSIS - Patient underwent implantation of mechanical aortic valve on 03/18/[address] Vazquez. Patient is doing well postoperatively. Anticoagulation will be initiated at the discretion of CV surgery. 2. CONGESTIVE HEART FAILURE - Chronicity of this is unknown. Secondary to patient's severe aortic stenosis as well as systolic dysfunction. Chest x-ray was reviewed today we will continue to diurese patient. Continue daily weights and strict I's and O's. Chest x-ray was improving. 3. NONISCHEMIC CARDIOMYOPATHY - Most recent ejection fraction noted to be 20- 25%. The patient underwent heart catheterization at [facility] earlier this week which did not reveal any obstructive coronary artery disease. Will treat this medically. Patient will need repeat echocardiogram in 90 days in order to reassess his systolic function. He may be a candidate for ICD at that point. 4. PULMONARY HYPERTENSION - Continue current plan of care. 5. HISTORY OF ASTHMA - Clinically stable at present. Continue current plan of care. 6. Anemia-I have addressed this with Dr. Vazquez. We will continue to monitor. He does not appear to be bleeding. It may be dilutional. Exam (Progress Note) - Constitutional Vitals: Period Temp Pulse Resp BP Sys/Lutz Pulse Ox Last 24 Hr 97.6 F-98.8 F 75-101 18-20 108-140/55-78 96-100 Result/EKG - Labs CBC & BMP: 03/20/17 04:38 03/20/17 04:38 Labs: Laboratory Results - last 24 hr 03/17/17 03/19/17 03/19/17 03:45 14:49 16:10 WBC 18.3 H D RBC 2.82 L Hgb 8.5 L Hct 26.7 L MCV 94.7 MCH 30 MCHC 31.8 L RDW 12.3 Plt Count 144 MPV 12.0 Neut % (Auto) 86.1 H Lymph % (Auto) 3.2 L [place] % (Auto) 10.1 Eos % (Auto) 0.0 Baso % (Auto) 0.1 Neut # (Auto) 15.8 H Lymph # (Auto) 0.6 L [place] # (Auto) 1.8 H Eos # (Auto) 0.0 Baso # (Auto) 0.0 Total Counted 100 Immature Gran % 0.5 Nucleated RBC % 0.0 Immature Gran # 0.09 Segmented Neutrophils 93 H Lymphocytes 5 L Monocytes 2 Nucleated RBCs # 0.00 Platelet Estimate Normal Immature Plt Fraction 0.0 Sodium Potassium Chloride Carbon Dioxide Anion Gap BUN Creatinine GFR Calculation BUN/Creatinine Ratio Glucose POC Glucose 184 H Calculated Osmolality Calcium Magnesium Crossmatch See Detail 03/19/17 03/20/17 03/20/17 19:12 00:50 04:09 WBC RBC Hgb Hct MCV MCH MCHC RDW Plt Count MPV Neut % (Auto) Lymph % (Auto) [place] % (Auto) Eos % (Auto) Baso % (Auto) Neut # (Auto) Lymph # (Auto) [place] # (Auto) Eos # (Auto) Baso # (Auto) Total Counted Immature Gran % Nucleated RBC % Immature Gran # Segmented Neutrophils Lymphocytes Monocytes Nucleated RBCs # Platelet Estimate Immature Plt Fraction Sodium Potassium Chloride Carbon Dioxide Anion Gap BUN Creatinine GFR Calculation BUN/Creatinine Ratio Glucose POC Glucose 213 H 196 H 181 H Calculated Osmolality Calcium Magnesium Crossmatch 03/20/17 03/20/17 03/20/17 04:38 04:38 04:38 WBC 15.2 H RBC 2.37 L Hgb 7.2 L Hct 22.5 L MCV 94.9 MCH 30 MCHC 32.0 RDW 12.4 Plt Count 136 MPV 12.4 H Neut % (Auto) 82.1 H Lymph % (Auto) 6.1 L [place] % (Auto) 11.2 Eos % (Auto) 0.0 Baso % (Auto) 0.0 Neut # (Auto) 12.5 H Lymph # (Auto) 0.9 L [place] # (Auto) 1.7 H Eos # (Auto) 0.0 Baso # (Auto) 0.0 Total Counted Immature Gran % 0.6 Nucleated RBC % 0.0 Immature Gran # 0.09 Segmented Neutrophils Lymphocytes Monocytes Nucleated RBCs # 0.00 Platelet Estimate Immature Plt Fraction 0.0 Sodium 142 143 Potassium 3.5 3.5 Chloride 107 108 H Carbon Dioxide 29 28 Anion Gap 9.5 10.5 BUN 18 17 Creatinine 0.60 L 0.60 L GFR Calculation 194 194 BUN/Creatinine Ratio 30.00 H 28.00 H Glucose 119 H 121 H POC Glucose Calculated Osmolality 285.1 287.0 Calcium 6.9 L D 7.3 L Magnesium 1.7 L 1.9 Crossmatch 03/20/17 03/20/17 07:24 11:16 WBC RBC Hgb Hct MCV MCH MCHC RDW Plt Count MPV Neut % (Auto) Lymph % (Auto) [place] % (Auto) Eos % (Auto) Baso % (Auto) Neut # (Auto) Lymph # (Auto) [place] # (Auto) Eos # (Auto) Baso # (Auto) Total Counted Immature Gran % Nucleated RBC % Immature Gran # Segmented Neutrophils Lymphocytes Monocytes Nucleated RBCs # Platelet Estimate Immature Plt Fraction Sodium Potassium Chloride Carbon Dioxide Anion Gap BUN Creatinine GFR Calculation BUN/Creatinine Ratio Glucose POC Glucose 150 H 136 H Calculated Osmolality Calcium Magnesium Crossmatch Quality Measures - VTE Contraindication to Pharmacological VTE Prophylaxis: Active Bleeding Specialty Discharge - Follow Up or Referrals
[2017-03-21] MEDS: INSULIN REGULAR 100 UNIT/ML SUBCUT SCH ×6 (00:17→21:05)
[2017-03-21] MEDS: POTASSIUM CHLORIDE RIDER 10 MEQ in PREMIX 1 EACH IV PRN (03:31)
[2017-03-21 05:18] LABS: Eosinophils % 0.2 % (0.00-10.9); Hematocrit 25.5 VOL% (42.0-52.0); Hemoglobin 7.9 GM/DL (14.0-18.0); Immature Granulocytes % 0.4 %; Immature Granulocytes Absolute 0.05 #; Lymphocytes # 1.5 10*3/uL (1.4-4.0); Lymphocytes % 13.2 % (21.2-54.2); Mean Corpuscular Hemoglobin 30 PG (27-34); Mean Corpuscular Volume 95.9 FL (87-102); Mean Platelet Volume 12.1 FL (9.6-12.0); Monocytes # 1.8 10*3/uL (0.11-0.8); Monocytes % 15.5 % (1.7-12.7); Neutrophils % 70.7 % (38.7-73.9); Platelet Count 161 T/CUMM (130-400); Red Blood Count 2.66 MC/CUMM (3.8-5.5); Red Cell Distribution Width 12.2 % (9.3-17.3); White Blood Count 11.3 T/CUMM (4-12)
[2017-03-21 05:47] LABS: Calcium 7.8 MG/DL (8.5-10.1); Magnesium 2.2 MG/DL (1.8-2.4); Osmolality,Calculated 284.1 MOS/KG (273-304); Potassium 3.9 MMOL/L (3.5-5.1)
[2017-03-21 05:51] LABS: Calcium 7.6 MG/DL (8.5-10.1); Magnesium 2.1 MG/DL (1.8-2.4); Osmolality,Calculated 284.1 MOS/KG (273-304); Potassium 3.9 MMOL/L (3.5-5.1)
[2017-03-21] MEDS: METOPROLOL TARTRATE 25 MG TABLET PO SCH ×2 (09:05→21:05)
[2017-03-21] MEDS: CHLORHEXIDINE 0.12% ORAL RINSE 60 ML BOTTLE SWISH/SPIT SCH ×2 (09:05→21:05)
[2017-03-21] MEDS: FLUTICASONE/SALMETEROL 250-50 DISKUS 14 DOSE INH SCH ×2 (09:05→21:05)
[2017-03-21] MEDS: FUROSEMIDE 40 MG TABLET PO SCH (09:05)
[2017-03-21] MEDS: FLUTICASONE 50 MCG NASAL SPRAY 16 GM BOTTLE BOTH NARES SCH ×2 (09:06→21:05)
--- NOTE | 2017-03-21 10:08 | Cardiology Progress Note ---
Assessment and Plan (1) Aortic valve stenosis Status: Acute Assessment and plan: See plan of care listed below Current Visit: Yes (2) Nonischemic cardiomyopathy Status: Chronic Assessment and plan: See plan of care listed below Current Visit: Yes (3) Pulmonary hypertension Status: Chronic Assessment and plan: See plan of care listed below Current Visit: Yes (4) Congestive heart failure Status: Chronic Assessment and plan: See plan of care listed below Current Visit: Yes Qualifiers: Congestive heart failure chronicity: acute on chronic (5) History of asthma Status: Chronic Assessment and plan: The plan of care listed below Current Visit: No Cardiology - PN: Subj Interval history: Pilot Safety Inspector: Dr. Clark at [facility] Summary Mr. Guerrero is a 61 year old male without known history of coronary artery disease, routinely followed by [facility]. Patient has cardiac risk factors significant for hypertension, sedentary lifestyle, family history of heart disease (mother) and obesity. Past medical history of asthma patient reports that he does chew tobacco daily. He underwent heart catheterization at [facility] that revealed severe aortic stenosis. Coronaries were free of significant obstructive disease. He was transferred to our facility for aortic valve replacement surgery Per Dr. Vazquez. Echocardiogram revealed severely reduced LV systolic function with global hypokinesis, ejection fraction at 20-25%, Severe aortic stenosis. The patient underwent surgery per Dr. Vazquez for mechanical valve placement to the aortic valve. March 20, 2017: He is postop day 2 and symptomatically seems to be doing well. He feels somewhat improved compared to yesterday. Hemodynamics are stable. March 21, 2017: Postop day 3, symptomatically continues to improve. He denies shortness of breath, chest pain. He is sleeping in his chair, but he tends to do this at home also. Hemoglobin is stable. ASSESSMENT/PLAN 1. SEVERE AORTIC STENOSIS - Patient underwent implantation of mechanical aortic valve on 03/18/[address] Vazquez. Patient is doing well postoperatively. Anticoagulation will be initiated at the discretion of CV surgery. 2. CONGESTIVE HEART FAILURE - Chronicity of this is unknown. Secondary to patient's severe aortic stenosis as well as systolic dysfunction. Chest x-ray was reviewed today we will continue to diurese patient. Continue daily weights and strict I's and O's. Chest x-ray was improving. 3. NONISCHEMIC CARDIOMYOPATHY - Most recent ejection fraction noted to be 20- 25%. The patient underwent heart catheterization at [facility] earlier this week which did not reveal any obstructive coronary artery disease. Will treat this medically. Patient will need repeat echocardiogram in 90 days in order to reassess his systolic function. He may be a candidate for ICD at that point. When his blood pressure improves, can consider the addition of an DANAE inhibitor. Right now his hemodynamics are prohibitive. 4. PULMONARY HYPERTENSION - Continue current plan of care. 5. HISTORY OF ASTHMA - Clinically stable at present. Continue current plan of care. 6. Anemia-I have addressed this with Dr. Vazquez. We will continue to monitor. He does not appear to be bleeding. It may be dilutional. This is stable. Exam (Progress Note) - Constitutional Vitals: Period Temp Pulse Resp BP Sys/Lutz Pulse Ox Last 24 Hr 97.6 F-98.4 F 83-91 18-20 92-148/48-78 93-97 Exam: General: Appears in no apparent distress. Arousable to stimulation. Appears comfortable. HEENT: PERRL, normocephalic, atraumatic. Mucous membranes moist. No jaundice noted. Conjunctiva moist and clear, sclerae anicteric. Neck: Right internal jugular catheter is present. No JVD/HJR, no thyromegaly or lymphadenopathy noted. Cardiac: Regular rate and rhythm. Mechanical S2. No murmur rub or gallop. PMI is nondisplaced. Lungs: Clear to auscultation without accessory muscle use to assist the respiratory pattern. Oxygen in use via nasal cannula. Abdomen: Soft, bowel sounds quiet. Nontender and nondistended. No masses noted. Musculoskeletal: No fluid collection. Decreased range of motion is noted. Extremities: No clubbing, cyanosis noted. 1+ bilateral extremity edema noted. Upper extremity pulses 2+. Lower extremity pulses 2+. Skin: Dressing intact to midsternal region. Neuro: Sedated, arousable and oriented 3. Moves all extremities well without hemiparesis or paralysis. No essential tremor is appreciated. Result/EKG - Labs CBC & BMP: 03/21/17 04:13 03/21/17 04:13 Lab Results: I have reviewed the past 24 hour labs Labs: Laboratory Results - last 24 hr 03/20/17 03/20/17 03/20/17 11:16 15:38 15:46 WBC RBC Hgb Hct MCV MCH MCHC RDW Plt Count MPV Neut % (Auto) Lymph % (Auto) [place] % (Auto) Eos % (Auto) Baso % (Auto) Neut # (Auto) Lymph # (Auto) [place] # (Auto) Eos # (Auto) Baso # (Auto) Immature Gran % Nucleated RBC % Immature Gran # Nucleated RBCs # Immature Plt Fraction Sodium Potassium 4.1 Chloride Carbon Dioxide Anion Gap BUN Creatinine GFR Calculation BUN/Creatinine Ratio Glucose POC Glucose 136 H 151 H Calculated Osmolality Calcium Magnesium 03/20/17 03/20/17 03/21/17 21:46 21:48 00:10 WBC RBC Hgb Hct MCV MCH MCHC RDW Plt Count MPV Neut % (Auto) Lymph % (Auto) [place] % (Auto) Eos % (Auto) Baso % (Auto) Neut # (Auto) Lymph # (Auto) [place] # (Auto) Eos # (Auto) Baso # (Auto) Immature Gran % Nucleated RBC % Immature Gran # Nucleated RBCs # Immature Plt Fraction Sodium Potassium 4.3 Chloride Carbon Dioxide Anion Gap BUN Creatinine GFR Calculation BUN/Creatinine Ratio Glucose POC Glucose 174 H 163 H Calculated Osmolality Calcium Magnesium 03/21/17 03/21/17 03/21/17 04:13 04:13 04:13 WBC 11.3 RBC 2.66 L Hgb 7.9 L Hct 25.5 L MCV 95.9 MCH 30 MCHC 31.0 L RDW 12.2 Plt Count 161 MPV 12.1 H Neut % (Auto) 70.7 Lymph % (Auto) 13.2 L [place] % (Auto) 15.5 H Eos % (Auto) 0.2 Baso % (Auto) 0.0 Neut # (Auto) 8.0 H Lymph # (Auto) 1.5 [place] # (Auto) 1.8 H Eos # (Auto) 0.0 Baso # (Auto) 0.0 Immature Gran % 0.4 Nucleated RBC % 0.0 Immature Gran # 0.05 Nucleated RBCs # 0.00 Immature Plt Fraction 0.0 Sodium 142 142 Potassium 3.9 3.9 Chloride 104 104 Carbon Dioxide 33 H 33 H Anion Gap 8.9 8.9 BUN 17 17 Creatinine 0.60 L 0.60 L GFR Calculation 194 194 BUN/Creatinine Ratio 28.00 H 28.00 H Glucose 92 92 POC Glucose Calculated Osmolality 284.1 284.1 Calcium 7.6 L 7.8 L Magnesium 2.1 2.2 03/21/17 03/21/17 04:34 07:55 WBC RBC Hgb Hct MCV MCH MCHC RDW Plt Count MPV Neut % (Auto) Lymph % (Auto) [place] % (Auto) Eos % (Auto) Baso % (Auto) Neut # (Auto) Lymph # (Auto) [place] # (Auto) Eos # (Auto) Baso # (Auto) Immature Gran % Nucleated RBC % Immature Gran # Nucleated RBCs # Immature Plt Fraction Sodium Potassium Chloride Carbon Dioxide Anion Gap BUN Creatinine GFR Calculation BUN/Creatinine Ratio Glucose POC Glucose 131 H 105 Calculated Osmolality Calcium Magnesium Quality Measures - VTE Contraindication to Pharmacological VTE Prophylaxis: Active Bleeding Specialty Discharge - Follow Up or Referrals
--- NOTE | 2017-03-21 10:47 | XRay Report ---
History: Postop thoracotomy. Evaluate for pneumothorax Date: 03/21/2017 Study: Chest x-ray single view portable Comparison exam: 03/20/2017 There is no pneumothorax. There is continued cardiomegaly. The mediastinal contour is unchanged in this patient status post prior median sternotomy. The pulmonary vasculature is slightly prominent. There is continued bibasilar pulmonary edema/atelectasis and mild bilateral pleural effusion, grossly similar. There is no new or worsening process. Osseous structures are unchanged. The right IJ vascular sheath remains in satisfactory position. Impression: No evidence of a pneumothorax. No significant change from the previous study otherwise PROCEDURE INTERPRETED AT [facility] DEPARTMENT OF RADIOLOGY Final Report Signed by: Dr. Kathya Griffin
[2017-03-21] MEDS ORDERED: FUROSEMIDE 40 MG/4 ML VIAL IV ONE (11:05)
--- NOTE | 2017-03-21 11:17 | Cardiothoracic Progress Note ---
Assessment and Plan (1) Aortic valve stenosis Status: Acute Current Visit: Yes (2) Aortic valve stenosis Status: Acute Assessment and plan: Postop day 3 status post aortic valve replacement with mechanical valve. Patient has been doing very well. Hemodynamically stable. no complaints. DC pacing wires, ambulate, give IV lasix 40mg. Start Coumadin tonight 5 mg daily Current Visit: Yes Exam (Progress Note) - Constitutional Vitals: Period Temp Pulse Resp BP Sys/Lutz Pulse Ox Last 24 Hr 97.6 F-98.4 F 83-91 18-20 92-148/48-73 93-97 Result/EKG - Labs CBC & BMP: 03/21/17 04:13 03/21/17 09:25 Labs: Laboratory Results - last 24 hr 03/20/17 03/20/17 03/20/17 11:16 15:38 15:46 WBC RBC Hgb Hct MCV MCH MCHC RDW Plt Count MPV Neut % (Auto) Lymph % (Auto) [place] % (Auto) Eos % (Auto) Baso % (Auto) Neut # (Auto) Lymph # (Auto) [place] # (Auto) Eos # (Auto) Baso # (Auto) Immature Gran % Nucleated RBC % Immature Gran # Nucleated RBCs # Immature Plt Fraction Sodium Potassium 4.1 Chloride Carbon Dioxide Anion Gap BUN Creatinine GFR Calculation BUN/Creatinine Ratio Glucose POC Glucose 136 H 151 H Calculated Osmolality Calcium Magnesium 03/20/17 03/20/17 03/21/17 21:46 21:48 00:10 WBC RBC Hgb Hct MCV MCH MCHC RDW Plt Count MPV Neut % (Auto) Lymph % (Auto) [place] % (Auto) Eos % (Auto) Baso % (Auto) Neut # (Auto) Lymph # (Auto) [place] # (Auto) Eos # (Auto) Baso # (Auto) Immature Gran % Nucleated RBC % Immature Gran # Nucleated RBCs # Immature Plt Fraction Sodium Potassium 4.3 Chloride Carbon Dioxide Anion Gap BUN Creatinine GFR Calculation BUN/Creatinine Ratio Glucose POC Glucose 174 H 163 H Calculated Osmolality Calcium Magnesium 03/21/17 03/21/17 03/21/17 04:13 04:13 04:13 WBC 11.3 RBC 2.66 L Hgb 7.9 L Hct 25.5 L MCV 95.9 MCH 30 MCHC 31.0 L RDW 12.2 Plt Count 161 MPV 12.1 H Neut % (Auto) 70.7 Lymph % (Auto) 13.2 L [place] % (Auto) 15.5 H Eos % (Auto) 0.2 Baso % (Auto) 0.0 Neut # (Auto) 8.0 H Lymph # (Auto) 1.5 [place] # (Auto) 1.8 H Eos # (Auto) 0.0 Baso # (Auto) 0.0 Immature Gran % 0.4 Nucleated RBC % 0.0 Immature Gran # 0.05 Nucleated RBCs # 0.00 Immature Plt Fraction 0.0 Sodium 142 142 Potassium 3.9 3.9 Chloride 104 104 Carbon Dioxide 33 H 33 H Anion Gap 8.9 8.9 BUN 17 17 Creatinine 0.60 L 0.60 L GFR Calculation 194 194 BUN/Creatinine Ratio 28.00 H 28.00 H Glucose 92 92 POC Glucose Calculated Osmolality 284.1 284.1 Calcium 7.6 L 7.8 L Magnesium 2.1 2.2 03/21/17 03/21/17 03/21/17 04:34 07:55 09:25 WBC RBC Hgb Hct MCV MCH MCHC RDW Plt Count MPV Neut % (Auto) Lymph % (Auto) [place] % (Auto) Eos % (Auto) Baso % (Auto) Neut # (Auto) Lymph # (Auto) [place] # (Auto) Eos # (Auto) Baso # (Auto) Immature Gran % Nucleated RBC % Immature Gran # Nucleated RBCs # Immature Plt Fraction Sodium Potassium 4.2 Chloride Carbon Dioxide Anion Gap BUN Creatinine GFR Calculation BUN/Creatinine Ratio Glucose POC Glucose 131 H 105 Calculated Osmolality Calcium Magnesium Quality Measures - VTE Contraindication to Pharmacological VTE Prophylaxis: Active Bleeding Specialty Discharge - Follow Up or Referrals
[2017-03-21] MEDS: POTASSIUM CHLORIDE RIDER 20 MEQ in PREMIX 1 EACH IV PRN ×2 (12:31→22:15)
[2017-03-21] MEDS: WARFARIN 5 MG TABLET PO SCH (18:00)
[2017-03-21] MEDS: HEPARIN DRIP 25,000 UNITS/500 ML PREMIX IV SCH (18:00)
[2017-03-21] MEDS ORDERED: HEPARIN DRIP 25,000 UNITS/500 ML PREMIX IV SCH ×2 (18:00)
[2017-03-21] MEDS ORDERED: POTASSIUM CHLORIDE RIDER 100 ML IV ONE (22:05)
[2017-03-22] MEDS: INSULIN REGULAR 100 UNIT/ML SUBCUT SCH ×6 (00:20→21:27)
[2017-03-22 06:19] LABS: Basophils % 0.1 % (0.0-0.8); Eosinophils # 0.1 10*3/uL (0.0-0.87); Eosinophils % 0.7 % (0.00-10.9); Hematocrit 29.7 VOL% (42.0-52.0); Hemoglobin 9.3 GM/DL (14.0-18.0); Immature Granulocytes % 0.6 %; Immature Granulocytes Absolute 0.06 #; Lymphocytes # 1.9 10*3/uL (1.4-4.0); Lymphocytes % 17.3 % (21.2-54.2); Mean Corpuscular HGB Conc 31.3 GM/DL (32-36); Mean Corpuscular Hemoglobin 30 PG (27-34); Mean Corpuscular Volume 94.6 FL (87-102); Mean Platelet Volume 11.9 FL (9.6-12.0); Monocytes # 1.5 10*3/uL (0.11-0.8); Monocytes % 13.9 % (1.7-12.7); Neutrophils # 7.2 10*3/uL (1.4-7.4); Neutrophils % 67.4 % (38.7-73.9); Platelet Count 230 T/CUMM (130-400); Red Blood Count 3.14 MC/CUMM (3.8-5.5); Red Cell Distribution Width 12.2 % (9.3-17.3); White Blood Count 10.7 T/CUMM (4-12)
[2017-03-22 06:31] LABS: PT Patient Result 11.1 SECS
[2017-03-22 06:37] LABS: Partial Thromboplastin Time 43.9 SECS (0-40)
[2017-03-22 06:50] LABS: Calcium 8.8 MG/DL (8.5-10.1); Magnesium 2.3 MG/DL (1.8-2.4); Potassium 4.6 MMOL/L (3.5-5.1)
[2017-03-22] MEDS: HEPARIN DRIP 25,000 UNITS/500 ML PREMIX IV SCH ×2 (07:55→22:42)
[2017-03-22] MEDS ORDERED: FUROSEMIDE 40 MG/4 ML VIAL IV ONE (08:33)
[2017-03-22] MEDS: FUROSEMIDE 40 MG TABLET PO SCH (09:09)
[2017-03-22] MEDS: METOPROLOL TARTRATE 25 MG TABLET PO SCH ×2 (09:09→20:22)
[2017-03-22] MEDS: FLUTICASONE/SALMETEROL 250-50 DISKUS 14 DOSE INH SCH ×2 (09:09→20:22)
[2017-03-22] MEDS: CHLORHEXIDINE 0.12% ORAL RINSE 60 ML BOTTLE SWISH/SPIT SCH ×2 (09:10→20:24)
[2017-03-22] MEDS: FLUTICASONE 50 MCG NASAL SPRAY 16 GM BOTTLE BOTH NARES SCH ×2 (09:10→20:22)
--- NOTE | 2017-03-22 09:44 | Cardiothoracic Progress Note ---
Assessment and Plan (1) Aortic valve stenosis Status: Acute Current Visit: Yes (2) Aortic valve stenosis Status: Acute Assessment and plan: Postop day 4 status post aortic valve replacement with mechanical valve. Patient has been doing very well. Hemodynamically stable. no complaints. ambulate, give IV lasix 40mg. Coumadin tonight 5 mg daily. Awaiting [facility] arrival so the patient can be discharged. The patient will be discharged with home health services for subcu Lovenox to bridge Coumadin for anti-coagulation for the mechanical valve. Current Visit: Yes Exam (Progress Note) - Constitutional Vitals: Period Temp Pulse Resp BP Sys/Lutz Pulse Ox Last 24 Hr 97.5 F-98.4 F 86-98 15-20 83-128/46-72 98-100 Result/EKG - Labs CBC & BMP: 03/22/17 05:46 03/22/17 05:46 Labs: Laboratory Results - last 24 hr 03/21/17 03/21/17 03/21/17 09:25 11:45 15:50 WBC RBC Hgb Hct MCV MCH MCHC RDW Plt Count MPV Neut % (Auto) Lymph % (Auto) [place] % (Auto) Eos % (Auto) Baso % (Auto) Neut # (Auto) Lymph # (Auto) [place] # (Auto) Eos # (Auto) Baso # (Auto) Immature Gran % Nucleated RBC % Immature Gran # Nucleated RBCs # Immature Plt Fraction INR PT Patient/Control Mix Circ Anticoag PTT Sodium Potassium 4.2 Chloride Carbon Dioxide Anion Gap BUN Creatinine GFR Calculation BUN/Creatinine Ratio Glucose POC Glucose 170 H 185 H Calculated Osmolality Calcium Magnesium 03/21/17 03/21/17 03/21/17 20:14 20:47 23:22 WBC RBC Hgb Hct MCV MCH MCHC RDW Plt Count MPV Neut % (Auto) Lymph % (Auto) [place] % (Auto) Eos % (Auto) Baso % (Auto) Neut # (Auto) Lymph # (Auto) [place] # (Auto) Eos # (Auto) Baso # (Auto) Immature Gran % Nucleated RBC % Immature Gran # Nucleated RBCs # Immature Plt Fraction INR PT Patient/Control Mix Circ Anticoag PTT 44.1 H D Sodium Potassium 4.1 Chloride Carbon Dioxide Anion Gap BUN Creatinine GFR Calculation BUN/Creatinine Ratio Glucose POC Glucose 152 H Calculated Osmolality Calcium Magnesium 08/01/3003/22/17 03/22/17 23:37 04:56 05:46 WBC RBC Hgb Hct MCV MCH MCHC RDW Plt Count MPV Neut % (Auto) Lymph % (Auto) [place] % (Auto) Eos % (Auto) Baso % (Auto) Neut # (Auto) Lymph # (Auto) [place] # (Auto) Eos # (Auto) Baso # (Auto) Immature Gran % Nucleated RBC % Immature Gran # Nucleated RBCs # Immature Plt Fraction INR 1.0 PT Patient/Control Mix 11.1 Circ Anticoag PTT 43.9 H Sodium Potassium Chloride Carbon Dioxide Anion Gap BUN Creatinine GFR Calculation BUN/Creatinine Ratio Glucose POC Glucose 147 H 137 H Calculated Osmolality Calcium Magnesium 03/22/17 03/22/17 03/22/17 05:46 05:46 07:19 WBC 10.7 RBC 3.14 L Hgb 9.3 L Hct 29.7 L MCV 94.6 MCH 30 MCHC 31.3 L RDW 12.2 Plt Count 230 D MPV 11.9 Neut % (Auto) 67.4 Lymph % (Auto) 17.3 L [place] % (Auto) 13.9 H Eos % (Auto) 0.7 Baso % (Auto) 0.1 Neut # (Auto) 7.2 Lymph # (Auto) 1.9 [place] # (Auto) 1.5 H Eos # (Auto) 0.1 Baso # (Auto) 0.0 Immature Gran % 0.6 Nucleated RBC % 0.0 Immature Gran # 0.06 Nucleated RBCs # 0.00 Immature Plt Fraction 0.0 INR PT Patient/Control Mix Circ Anticoag PTT Sodium 136 Potassium 4.6 Chloride 95 L Carbon Dioxide 33 H Anion Gap 12.6 BUN 13 Creatinine 0.70 GFR Calculation 184 BUN/Creatinine Ratio 18.00 Glucose 110 H POC Glucose 127 H Calculated Osmolality 272.0 L Calcium 8.8 Magnesium 2.3 Quality Measures - VTE Contraindication to Pharmacological VTE Prophylaxis: Active Bleeding Specialty Discharge - Follow Up or Referrals
--- NOTE | 2017-03-22 09:45 | Cardiology Progress Note ---
Assessment and Plan (1) Aortic valve stenosis Status: Acute Assessment and plan: See plan of care listed below. Current Visit: Yes (2) Congestive heart failure Status: Chronic Assessment and plan: See plan of care listed below. Current Visit: Yes Qualifiers: Congestive heart failure chronicity: acute on chronic (3) Nonischemic cardiomyopathy Status: Chronic Assessment and plan: See plan of care listed below. Current Visit: Yes (4) Pulmonary hypertension Status: Chronic Assessment and plan: See plan of care listed below. Current Visit: Yes (5) History of asthma Status: Chronic Assessment and plan: See plan of care listed below Current Visit: No (6) Anemia Status: Acute Assessment and plan: See plan of care listed below. Current Visit: Yes Cardiology - PN: Subj Interval history: Occ Therapist: Dr. Clark at [facility] Summary Mr. Guerrero is a 61 year old male without known history of coronary artery disease, routinely followed by [facility]. Patient has cardiac risk factors significant for hypertension, sedentary lifestyle, family history of heart disease (mother) and obesity. Past medical history of asthma patient reports that he does chew tobacco daily. He underwent heart catheterization at [facility] that revealed severe aortic stenosis. Coronaries were free of significant obstructive disease. He was transferred to our facility for aortic valve replacement surgery Per Dr. Vazquez. Echocardiogram revealed severely reduced LV systolic function with global hypokinesis, ejection fraction at 20-25%, Severe aortic stenosis. The patient underwent surgery per Dr. Vazquez for mechanical valve placement to the aortic valve. March 20, 2017: He is postop day 2 and symptomatically seems to be doing well. He feels somewhat improved compared to yesterday. Hemodynamics are stable. March 21, 2017: Postop day 3, symptomatically continues to improve. He denies shortness of breath, chest pain. He is sleeping in his chair, but he tends to do this at home also. Hemoglobin is stable. March 22, 2017: Patient is doing well this morning. Today is postop day #4. He is without complaints. Denies chest pain, heaviness and tightness. Denies shortness of breath and dizziness. He reports that he has been walking down the halls in the telemetry unit without difficulty. Patient is hopeful for discharge home tomorrow. Working to get home health set up at discharge. Chest x-ray is unchanged from previous. Continue to diurese. Vital signs are stable. Sinus rhythm per conveyor attendant. I will discuss with Dr. Garcia and await his additional recommendations. ASSESSMENT/PLAN 1. SEVERE AORTIC STENOSIS - Patient underwent implantation of mechanical aortic valve on 03/18/[address] Vazquez. Patient is doing well postoperatively. Anticoagulation has been initiated. Will monitor with daily INR 2. CONGESTIVE HEART FAILURE - Chronicity of this is unknown. Secondary to patient's severe aortic stenosis as well as systolic dysfunction. Chest x-ray was reviewed today we will continue to diurese patient. Patient was given a one -time dose of IV 40 mg Lasix per attending. Continue daily weights and strict I 's and O's. 3. NONISCHEMIC CARDIOMYOPATHY - Most recent ejection fraction noted to be 20- 25%. The patient underwent heart catheterization at [facility] earlier this week which did not reveal any obstructive coronary artery disease. Will treat this medically. Patient will need repeat echocardiogram in 90 days in order to reassess his systolic function. He may be a candidate for ICD at that point. Low-dose DANAE inhibitor initiated today. Monitor blood pressure with this. 4. PULMONARY HYPERTENSION - Continue current plan of care. 5. HISTORY OF ASTHMA - Clinically stable at present. Continue current plan of care. 6. Anemia- We will continue to monitor. He does not appear to be bleeding. It may be dilutional. This is stable. Daily CBC. Exam (Progress Note) - Constitutional Vitals: Period Temp Pulse Resp BP Sys/Lutz Pulse Ox Last 24 Hr 97.5 F-98.4 F 86-98 15-20 83-128/46-72 98-100 Exam: General: Appears in no apparent distress. Arousable to stimulation. Appears comfortable. HEENT: PERRL, normocephalic, atraumatic. Mucous membranes moist. No jaundice noted. Conjunctiva moist and clear, sclerae anicteric. Neck: No JVD/HJR, no thyromegaly or lymphadenopathy noted. Cardiac: Regular rate and rhythm. Mechanical S2. No murmur rub or gallop. PMI is nondisplaced. Lungs: Clear to auscultation without accessory muscle use to assist the respiratory pattern. Oxygen in use via nasal cannula. Abdomen: Soft, bowel sounds quiet. Nontender and nondistended. No masses noted. Musculoskeletal: No fluid collection. Decreased range of motion is noted. Extremities: No clubbing, cyanosis noted. 2+ bilateral extremity edema noted. Upper extremity pulses 2+. Lower extremity pulses 2+. Skin: Surgical incision healing well without signs of dehiscence or drainage. Neuro: Alert and oriented 3. Moves all extremities well without hemiparesis or paralysis. No essential tremor is appreciated. Result/EKG - Labs CBC & BMP: 03/22/17 05:46 03/22/17 05:46 Lab Results: I have reviewed the past 24 hour labs Labs: Laboratory Results - last 24 hr 03/21/17 03/21/17 03/21/17 09:25 11:45 15:50 WBC RBC Hgb Hct MCV MCH MCHC RDW Plt Count MPV Neut % (Auto) Lymph % (Auto) [place] % (Auto) Eos % (Auto) Baso % (Auto) Neut # (Auto) Lymph # (Auto) [place] # (Auto) Eos # (Auto) Baso # (Auto) Immature Gran % Nucleated RBC % Immature Gran # Nucleated RBCs # Immature Plt Fraction INR PT Patient/Control Mix Circ Anticoag PTT Sodium Potassium 4.2 Chloride Carbon Dioxide Anion Gap BUN Creatinine GFR Calculation BUN/Creatinine Ratio Glucose POC Glucose 170 H 185 H Calculated Osmolality Calcium Magnesium 03/21/17 03/21/17 03/21/17 20:14 20:47 23:22 WBC RBC Hgb Hct MCV MCH MCHC RDW Plt Count MPV Neut % (Auto) Lymph % (Auto) [place] % (Auto) Eos % (Auto) Baso % (Auto) Neut # (Auto) Lymph # (Auto) [place] # (Auto) Eos # (Auto) Baso # (Auto) Immature Gran % Nucleated RBC % Immature Gran # Nucleated RBCs # Immature Plt Fraction INR PT Patient/Control Mix Circ Anticoag PTT 44.1 H D Sodium Potassium 4.1 Chloride Carbon Dioxide Anion Gap BUN Creatinine GFR Calculation BUN/Creatinine Ratio Glucose POC Glucose 152 H Calculated Osmolality Calcium Magnesium 03/21/17 03/22/17 03/22/17 23:37 04:56 05:46 WBC RBC Hgb Hct MCV MCH MCHC RDW Plt Count MPV Neut % (Auto) Lymph % (Auto) [place] % (Auto) Eos % (Auto) Baso % (Auto) Neut # (Auto) Lymph # (Auto) [place] # (Auto) Eos # (Auto) Baso # (Auto) Immature Gran % Nucleated RBC % Immature Gran # Nucleated RBCs # Immature Plt Fraction INR 1.0 PT Patient/Control Mix 11.1 Circ Anticoag PTT 43.9 H Sodium Potassium Chloride Carbon Dioxide Anion Gap BUN Creatinine GFR Calculation BUN/Creatinine Ratio Glucose POC Glucose 147 H 137 H Calculated Osmolality Calcium Magnesium 03/22/17 03/22/17 03/22/17 05:46 05:46 07:19 WBC 10.7 RBC 3.14 L Hgb 9.3 L Hct 29.7 L MCV 94.6 MCH 30 MCHC 31.3 L RDW 12.2 Plt Count 230 D MPV 11.9 Neut % (Auto) 67.4 Lymph % (Auto) 17.3 L [place] % (Auto) 13.9 H Eos % (Auto) 0.7 Baso % (Auto) 0.1 Neut # (Auto) 7.2 Lymph # (Auto) 1.9 [place] # (Auto) 1.5 H Eos # (Auto) 0.1 Baso # (Auto) 0.0 Immature Gran % 0.6 Nucleated RBC % 0.0 Immature Gran # 0.06 Nucleated RBCs # 0.00 Immature Plt Fraction 0.0 INR PT Patient/Control Mix Circ Anticoag PTT Sodium 136 Potassium 4.6 Chloride 95 L Carbon Dioxide 33 H Anion Gap 12.6 BUN 13 Creatinine 0.70 GFR Calculation 184 BUN/Creatinine Ratio 18.00 Glucose 110 H POC Glucose 127 H Calculated Osmolality 272.0 L Calcium 8.8 Magnesium 2.3 Quality Measures - VTE Contraindication to Pharmacological VTE Prophylaxis: Active Bleeding Specialty Discharge - Follow Up or Referrals
[2017-03-22] MEDS: ASPIRIN CHEW 81 MG TABLET PO SCH (10:13)
[2017-03-22] MEDS: LISINOPRIL 2.5 MG TABLET PO SCH (10:13)
--- NOTE | 2017-03-22 13:07 | Sleep Medicine Consult ---
Assessment and Plan (1) Unspecified sleep apnea Status: Acute Assessment and plan: His symptoms and sleepiness certainly are concerning for sleep apnea. We will schedule him for outpatient polysomnography after discharge and schedule follow- up in the sleep clinic for those results and further treatment if indicated. He has done poorly with empiric CPAP therapy while hospitalized and if not absolutely necessary, I would discontinue this. Often, poor response with in- hospital CPAP due to pressure intolerance or poor mask fit can bias patients against CPAP or BiPAP therapy with appropriate pressure titration and mask fit in the future. Thank you for this consult and the opportunity to participate in his care. Current Visit: Yes (2) Nonischemic cardiomyopathy Status: Chronic Assessment and plan: Untreated sleep apnea certainly can be a contributing factor to cardiomyopathy and CPAP therapy may actually benefit heart function. Current Visit: Yes (3) Pulmonary hypertension Status: Chronic Assessment and plan: Untreated sleep apnea can be a cause a mild to moderate pulmonary hypertension. More severe pulmonary hypertension is usually not associated with sleep apnea alone but seen in conjunction with other disorders of chronic hypoxia or chronic respiratory failure. Current Visit: Yes History of Present Illness Chief complaint: Sleep apnea History of present illness: Mr. Guerrero is a 61 year old male transferred from [facility] for elective aortic valve replacement. He had been admitted there with shortness of breath and congestive heart failure and was found to have severe aortic stenosis with nonischemic cardiomyopathy, having an EF of 20-25%. He had evidence of pulmonary hypertension but no coronary artery disease. He has chronic symptoms of 2-3 pillow orthopnea. He was screened for sleep apnea and had a stop bang score of 7 with an [place] sleepiness score of 14. He does snore loudly but has never been told that he stops breathing during his sleep. 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 He does have a family history of NIKHIL and his son who is a patient of mine. Home Medications Medication Instructions Recorded Confirmed Type Carvedilol 3.125 mg PO BID 03/16/17 03/16/17 History Fluticasone 50 Mcg Nasal [place] 1 spray ONE NARE BID 03/16/17 03/16/17 History [Flonase Nasal [place]] Fluticasone/Salmeterol 250-50 1 puff INH BID 03/16/17 03/16/17 History [Advair 250-50] Furosemide 20 mg PO DAILY 03/16/17 03/16/17 History Lisinopril 10 mg PO DAILY 03/16/17 03/16/17 History Allergies Allergy/AdvReac Type Severity Reaction Status Date / Time No Known Allergies Allergy Verified 03/16/17 18:27 Review of systems: Positive for nocturia. Exam (Pulmonay) H&P - Constitutional Vitals: Period Temp Pulse Resp BP Sys/Lutz Pulse Ox Last 24 Hr 97.5 F-98.4 F 87-98 15-20 83-128/46-68 98-100 Exam: He is alert and responsive in no acute distress. Pupils equal round reactive to light and accommodation. Extraocular movements intact. Oropharynx with a class III Mallampati exam. Neck is supple without adenopathy or thyromegaly. No supraclavicular adenopathy is noted. Chest with symmetrical breath sounds without focal wheeze, rhonchi, or rales. Cardiac exam reveals a regular rhythm without murmur or gallop. Abdomen soft nontender without palpable hepatosplenomegaly or mass. Extremities without significant edema. Neurologically, he is grossly intact. Medical,Surgical,& Family Hx - Medical History Cardio: History of: Cardiac Dysrhythmia, CHF, Hypertension, Valvular Heart Disease (Aortic stenosis), Cardiovascular Problems Respiratory: History of: Asthma, Bronchitis, COPD - Surgical History Cardiac Surgeries: Sugical HX of: Cardiac Catheterization Abdominal Surgeries: Patient denies: Colonoscopy - Family History Family History: Reports;: Family Heart Disease - Social History Smoking Status: Never smoker Frequency of Alcohol Use: None Type of Drug Use: None Results - Labs CBC & BMP: 03/22/17 05:46 03/22/17 05:46 Lab Results: I have reviewed the past 24 hour labs Quality Measures - VTE Contraindication to Pharmacological VTE Prophylaxis: Active Bleeding Specialty Discharge - Follow Up or Referrals
[2017-03-22] MEDS: WARFARIN 5 MG TABLET PO SCH (16:59)
[2017-03-23] MEDS: INSULIN REGULAR 100 UNIT/ML SUBCUT SCH (01:44)
[2017-03-23 06:04] LABS: Basophils % 0.1 % (0.0-0.8); Eosinophils # 0.1 10*3/uL (0.0-0.87); Eosinophils % 1.2 % (0.00-10.9); Hematocrit 27.8 VOL% (42.0-52.0); Hemoglobin 9.1 GM/DL (14.0-18.0); Immature Granulocytes % 0.7 %; Immature Granulocytes Absolute 0.07 #; Lymphocytes # 2.3 10*3/uL (1.4-4.0); Lymphocytes % 21.6 % (21.2-54.2); Mean Corpuscular HGB Conc 32.7 GM/DL (32-36); Mean Corpuscular Hemoglobin 30 PG (27-34); Mean Corpuscular Volume 92.4 FL (87-102); Mean Platelet Volume 11.9 FL (9.6-12.0); Monocytes # 1.6 10*3/uL (0.11-0.8); Monocytes % 14.9 % (1.7-12.7); Neutrophils # 6.6 10*3/uL (1.4-7.4); Neutrophils % 61.5 % (38.7-73.9); Platelet Count 277 T/CUMM (130-400); Red Blood Count 3.01 MC/CUMM (3.8-5.5); Red Cell Distribution Width 12.4 % (9.3-17.3); White Blood Count 10.7 T/CUMM (4-12)
[2017-03-23 06:11] LABS: INR 1.1; PT Patient Result 11.4 SECS
[2017-03-23 06:30] LABS: Giant Platelets Few; Hypochromasia 1+; Ovalocytes Slight; Platelet Estimate Adequate
[2017-03-23 06:36] LABS: Calcium 8.8 MG/DL (8.5-10.1); Osmolality,Calculated 270.1 MOS/KG (273-304); Potassium 4.1 MMOL/L (3.5-5.1)
[2017-03-23] MEDS ORDERED: INSULIN REGULAR 100 UNIT/ML SUBCUT SCH (07:30)
[2017-03-23] MEDS: FLUTICASONE/SALMETEROL 250-50 DISKUS 14 DOSE INH SCH (08:39)
[2017-03-23] MEDS: METOPROLOL TARTRATE 25 MG TABLET PO SCH (08:39)
[2017-03-23] MEDS: ASPIRIN CHEW 81 MG TABLET PO SCH (08:39)
[2017-03-23] MEDS: FLUTICASONE 50 MCG NASAL SPRAY 16 GM BOTTLE BOTH NARES SCH (08:39)
[2017-03-23] MEDS: LISINOPRIL 2.5 MG TABLET PO SCH (08:39)
[2017-03-23] MEDS: FUROSEMIDE 40 MG TABLET PO SCH (08:39)
[2017-03-23] MEDS: CHLORHEXIDINE 0.12% ORAL RINSE 60 ML BOTTLE SWISH/SPIT SCH (08:40)
--- NOTE | 2017-03-23 10:16 | Discharge Summary ---
Hospital Course - Hospital Course Hospital Course: The patient was transferred from [facility] to here under my care for CHF, cardiomyopathy with EF 20% and severe Aortic stenosis. After optimization, I took the patient to the OR and AVR with mechanical valve was performed. The patient did very well, was extubated within 24 hours and then transferred to telemetry. The Chest tube output was minimal, I removed them on POD 2, POD3, and 4 the patient contined to do very well, I started him on anticoagulation for the mechanical valve, I requested lifevest upon discharge as he is liable for venntricular arrhythmia due to his low EF however it was rejected by insurance and the patient can't afford it out of pocket. POD5 he was ready for discharge. - Time spent with patient Time with patient DS: Greater than 30 minutes Diagnosis - Discharge Diagnosis (1) Aortic valve stenosis Status: Acute (2) Aortic valve stenosis Status: Acute Specialty Discharge - Follow Up or Referrals Follow up with: Shabana Vazquez [Primary Care Provider] - 04/12/17 8:30 am Nellie Lee MD [Physician] - 04/12/17 7:15 pm Thai Clark MD [Physician] - 03/24/17 9:00 am (Nursing encounter to check INR.) Discharge Plan - Discharge Data Disposition: Disch To Home/Self Care Condition at Discharge: Stable Discharge Diet: advance to your usual diet Activity: resume usual activities as tolerated, ambulate only with your walker, as per the cardiac rehab Hygiene: no restrictions Weight Bearing at Discharge: full weight bearing Driving: no restrictions Contact your physician if you experience:: fever over 101, Difficulty voiding, Redness or swelling, Nausea/Vomiting, Shortness of breath, Bleeding - Discharge Medications New Aspirin Chew Tab 81 mg PO DAILY tablet Fluticasone 50 Mcg Nasal [place] [Flonase Nasal [place]] 1 spray BOTH NARES BID spray HYDROcodone/ACETAMIN 5-325 [[place] 5-325] 1 tablet PO Q4H PRN #30 tablet PRN Reason: Pain Moderate (4-7) Lisinopril [Prinivil] 2.5 mg PO DAILY tablet Metoprolol Tartrate Tab [Lopressor Tab] 25 mg PO BID tablet Warfarin [Coumadin] 5 mg PO DAILY@1800 #20 tablet Furosemide Tab [Lasix Tab] 40 mg PO DAILY #60 tablet Continue Fluticasone/Salmeterol 250-50 [Advair 250-50] 1 puff INH BID Fluticasone 50 Mcg Nasal [place] [Flonase Nasal [place]] 1 spray ONE NARE BID Carvedilol 3.125 mg PO BID Discontinued Lisinopril 10 mg PO DAILY Furosemide 20 mg PO DAILY - Follow Up or Referral Follow Up: Shabana Vazquez [Primary Care Provider] - 04/12/17 8:30 am Nellie Lee MD [Physician] - 04/12/17 7:15 pm Thai Clark MD [Physician] - 03/24/17 9:00 am (Nursing encounter to check INR.) - Forms/Instructions Instructions: Warfarin (By mouth), Aortic Valve Replacement (DC), How to Stop Smoking (GEN), Heart Healthy Diet (GEN), Cigarette Smoking and Your Health (GEN) , Sternal Precautions (GEN) Exam - Constitutional Vitals: Period Temp Pulse Resp BP Sys/Lutz Pulse Ox Last 24 Hr 97.1 F-98.1 F 90-105 16-20 97-130/58-67 95-100 Discharge Results Procedures and tests throughout hospitalization: Pending Orders 03/17/17 03:45 Fresh Frozen Plasma IN AM Red Blood Cells Leuko Red IN AM Single Donor Platelets IN AM Type and Screen Routine 03/24/17 04:00 BMP w/ Mg [Basic Metabolic Panel w/Mg] IN AM CBC [Comp Blood Count Auto Diff] IN AM Prothrombin Time INR IN AM 03/25/17 04:00 BMP w/ Mg [Basic Metabolic Panel w/Mg] IN AM CBC [Comp Blood Count Auto Diff] IN AM Prothrombin Time INR IN AM 03/26/17 04:00 BMP w/ Mg [Basic Metabolic Panel w/Mg] IN AM CBC [Comp Blood Count Auto Diff] IN AM Prothrombin Time INR IN AM Labs on day of discharge: Labs from last 24 hours 03/23/17 03/23/17 03/23/17 07:55 05:17 05:17 WBC RBC Hgb Hct MCV MCH MCHC RDW Plt Count MPV Neut % (Auto) Lymph % (Auto) [place] % (Auto) Eos % (Auto) Baso % (Auto) Neut # (Auto) Lymph # (Auto) [place] # (Auto) Eos # (Auto) Baso # (Auto) Immature Gran % Nucleated RBC % Immature Gran # Nucleated RBCs # Platelet Estimate Giant Platelets Immature Plt Fraction Hypochromasia Ovalocytes INR 1.1 PT Patient/Control Mix 11.4 Circ Anticoag PTT Sodium 135 L Potassium 4.1 Chloride 95 L Carbon Dioxide 32 Anion Gap 12.1 BUN 12 Creatinine 0.60 L GFR Calculation 196 BUN/Creatinine Ratio 20.00 Glucose 118 H POC Glucose 118 H Calculated Osmolality 270.1 L Calcium 8.8 Magnesium 2.0 03/23/17 03/23/17 03/22/17 05:17 05:17 21:16 WBC 10.7 RBC 3.01 L Hgb 9.1 L Hct 27.8 L MCV 92.4 MCH 30 MCHC 32.7 RDW 12.4 Plt Count 277 D MPV 11.9 Neut % (Auto) 61.5 Lymph % (Auto) 21.6 [place] % (Auto) 14.9 H Eos % (Auto) 1.2 Baso % (Auto) 0.1 Neut # (Auto) 6.6 Lymph # (Auto) 2.3 [place] # (Auto) 1.6 H Eos # (Auto) 0.1 Baso # (Auto) 0.0 Immature Gran % 0.7 Nucleated RBC % 0.0 Immature Gran # 0.07 Nucleated RBCs # 0.00 Platelet Estimate Adequate Giant Platelets Few Immature Plt Fraction 0.0 Hypochromasia 1+ Ovalocytes Slight INR PT Patient/Control Mix Circ Anticoag PTT 52.2 H Sodium Potassium Chloride Carbon Dioxide Anion Gap BUN Creatinine GFR Calculation BUN/Creatinine Ratio Glucose POC Glucose 120 H Calculated Osmolality Calcium Magnesium 03/22/17 03/22/17 16:15 12:00 WBC RBC Hgb Hct MCV MCH MCHC RDW Plt Count MPV Neut % (Auto) Lymph % (Auto) [place] % (Auto) Eos % (Auto) Baso % (Auto) Neut # (Auto) Lymph # (Auto) [place] # (Auto) Eos # (Auto) Baso # (Auto) Immature Gran % Nucleated RBC % Immature Gran # Nucleated RBCs # Platelet Estimate Giant Platelets Immature Plt Fraction Hypochromasia Ovalocytes INR PT Patient/Control Mix Circ Anticoag PTT Sodium Potassium Chloride Carbon Dioxide Anion Gap BUN Creatinine GFR Calculation BUN/Creatinine Ratio Glucose POC Glucose 113 H 132 H Calculated Osmolality Calcium Magnesium DS: Provider Date of admission: 03/16/17 17:51 Primary care physician: Shabana Vazquez Attending physician on admission: Shabana Vazquez Consults: 03/16/17 16:17 Consult to Dietitian [CONS] Routine Reason for Dietitian: Other Consult Comment: low salt, low cholesterol, diet 03/18/17 12:48 Consult to Occupational Therapy [CONS] Routine Reason for Occupational Therapy: Evaluate and Treat Start Therapy: Tomorrow Consult to Physical Therapy [CONS] Routine Reason for Physical Therapy: Evaluate and Treat Start Therapy: Tomorrow 03/19/17 08:01 Consult to Physician [CONS] Routine Comment: Consulting Provider: Nellie Lee Person Notified: MARY Date Notified: 03/19/17 Time Notified: 08:20 Consult Notification Comment: IS OUT UNTIL Wednesday03/19/17 12:33 Consult to Sleep Center [CONS] Routine Reason for Sleep Center: Sleep Center Physician 03/22/17 07:23 Consult to Sleep Center [CONS] Routine Reason for Sleep Center: Sleep Center Physician Consult Comment: evaluate for sleep apnea 03/22/17 09:35 Consult to Case Mgmt/Social Srvs [CONS] Routine Reason for Case Mgmt/Social Srvs: Home Health 03/22/17 10:03 Consult to Case Mgmt/Social Srvs [CONS] Routine Reason for Case Mgmt/Social Srvs: Discharge Planning Consult Comment: life vest Discharging clinician: Shabana Vazquez Expected date of discharge: 03/23/17
[2017-03-23 11:36] VITALS: BP 110/59
== END 2017-03-23 11:40 | disposition home or self-care (01) | DRG 219 ==
LOC: N.TELEN 17:51 → N.CVR 03-18 11:36 → N.TELES 03-19 13:55
PROVIDERS: ADMIT Thoracic Surgery (Cardiothoracic Vascular Surgery); ATTEND Thoracic Surgery (Cardiothoracic Vascular Surgery)